=== PATIENT | female | born 1980 ===

== ENCOUNTER → 2020-02-16 08:19 | Outpatient (BNVA) | payer OTHER, SELFPAY | PROVIDERS: PCP Internal Medicine; Visit Provider Physician Assistant | DX: Z76.89 Persons encountering health services in other specified circumstances (principal) ==

== ENCOUNTER → 2020-02-17 07:59 | Outpatient (BNVA) | payer OTHER, SELFPAY | PROVIDERS: PCP Internal Medicine; Referring Provider Internal Medicine; Visit Provider Surgery | DX: E66.01 Morbid (severe) obesity due to excess calories (principal); K21.9 Gastro-esophageal reflux disease without esophagitis | CPT/HCPCS: Q3014 ==

== ENCOUNTER 2020-03-02 13:14 | Outpatient (REF) | payer OTHER, SELFPAY ==
[2020-03-03 15:53] LABS: H Pylori Breath Test NOT DETECTED (NOT DETECTED)
== END 2020-03-02 13:15 | disposition home or self-care (01) ==
LOC: HO.LNP 13:14
PROVIDERS: PCP Internal Medicine; Visit Provider Surgery
DX: Z11.0 Encounter for screening for intestinal infectious diseases (principal)
CPT/HCPCS: 83013; 99211

== ENCOUNTER 2020-03-05 06:40 | Outpatient (REF) | payer OTHER, SELFPAY ==
--- NOTE | 2020-03-05 07:18 | XR_ITS ---
EXAMINATION: XR CHEST CLINICAL INFORMATION: Gastroesophageal reflux disease with esophagitis. COMPARISON: None TECHNIQUE: 2 views of the chest were obtained. FINDINGS: No significant abnormality is noted involving the heart, lungs, mediastinum, bony thorax or soft tissues. XR/XR chest 2V IMPRESSION: Unremarkable chest examination.
[2020-03-05 07:20] LABS: MANUAL DIFF FLAG NO
[2020-03-05 07:22] LABS: Basophils Percent Auto 0.4 % (0-2); Eosinophils Absolute Auto 0.2 X10*3/uL (0.0-0.4); Eosinophils Percent Auto 2.9 % (0-4); Hematocrit 36.1 % (37-47); Imm Gran Abs Auto 0.03 X10*3/uL (0.00-0.03); Imm Gran Pct Auto 0.4 % (0.0-0.4); Lymphocytes Absolute Auto 2.2 X10*3/uL (1.2-4.9); Lymphocytes Percent Auto 28.5 % (20-40); Mean Corpuscular HGB Conc 33.2 g/dl (31.0-35.0); Mean Corpuscular Volume 78.3 fL (80-98); Mean Platelet Volume 9.7 fL (9.4-12.3); Monocytes Absolute Auto 0.5 X10*3/uL (0.1-1.2); Monocytes Percent Auto 6.7 % (2-11); Neutrophils Absolute Auto 4.8 X10*3/uL (2.0-8.3); Neutrophils Percent Auto 61.1 % (45-73); Platelet Count 334 X10*3/uL (160-400); Red Blood Count 4.61 X10*6/uL (4.20-5.50); Red Cell Distribution Width 14.1 % (11.0-16.0); White Blood Count 7.8 X10*3/uL (4.8-10.8)
[2020-03-05 07:31] LABS: Estimated Average Glucose 108 mg/dL; Hemoglobin A1c % 5.4 %
[2020-03-05 07:45] LABS: Alanine Aminotransferase 24 U/L (0-31); Albumin Level 4.2 g/dL (3.5-5.0); Alkaline Phosphatase 65 U/L (39-117); Anion Gap 13 (12-20); Aspartate Amino Transferase 22 U/L (5-31); Bilirubin Total 0.5 mg/dL (0.0-1.0); Blood Urea Nitrogen 11 mg/dL (9-16); C Reactive Protein 1.73 mg/dL (< or = 0.50); Calcium 8.8 mg/dL (8.4-10.2); Carbon Dioxide 26 mmol/L (22-29); Chloride 103 mmol/L (96-108); Cholesterol 186 mg/dL; Estimated Glomerular Filt Rate > 60; Glucose Random 113 mg/dL (60-115); HDL Cholesterol 61 mg/dL; LDL Cholesterol Calculated 110 mg/dl; Potassium 4.1 mmol/l (3.3-5.1); Sodium 138 mmol/L (135-145); Total Protein 7.6 g/dL (6.5-8.0); Triglycerides 76 mg/dL
[2020-03-05 07:58] LABS: Ferritin 24 ng/mL (10-122); TSH reflex Free T4 1.14 mIU/mL (0.32-4.0); Vitamin D 25-OH Total 26.8 ng/mL (>30)
[2020-03-05 09:38] LABS: Folate > 20.0 ng/mL (> or = 4.0); Vitamin B12 633 pg/mL (200-900)
[2020-03-06 13:43] LABS: Calcium (PTHI) 9.1 mg/dL (8.6-10.2); PTHI 48 pg/mL (14-64)
[2020-03-06 17:12] LABS: Insulin Level Total 17.7 uIU/mL
[2020-03-08 13:42] LABS: Zinc 66 mcg/dL (60-130)
[2020-03-10 10:22] LABS: Vitamin A 28 mcg/dL (38-98)
[2020-03-11 12:03] LABS: Vitamin B1 9 nmol/L (8-30)
== END 2020-03-05 06:41 | disposition home or self-care (01) ==
LOC: HO.LAB 06:40
PROVIDERS: PCP Internal Medicine; Visit Provider Surgery
DX: K21.9 Gastro-esophageal reflux disease without esophagitis (principal)
CPT/HCPCS: 36415; 71046; 80053; 80061; 82306; 82607; 82728; 82746; 83036; 83525; 83970; 84425; 84443; 84590; 84630; 85025; 86140

== ENCOUNTER → 2020-03-08 08:09 | Outpatient (BNVA) | payer OTHER, SELFPAY | PROVIDERS: PCP Internal Medicine; Visit Provider Dietitian, Registered | DX: Z76.89 Persons encountering health services in other specified circumstances (principal) ==

== ENCOUNTER → 2020-03-14 08:21 | Outpatient (REF) | payer OTHER, SELFPAY ==
--- NOTE | 2020-03-14 08:42 | ECG_ITS ---
Test Reason : CP Blood Pressure : / mmHG Vent. Rate : 060 BPM Atrial Rate : 060 BPM P-R Int : 152 ms QRS Dur : 084 ms QT Int : 410 ms P-R-T Axes : 072 041 008 degrees QTc Int : 410 ms Normal sinus rhythm Normal ECG No previous ECGs available Referred By: Keshawn Cordero Electronically Signed By:DES FLOYD
== END ==
LOC: HO.CARD 08:21
PROVIDERS: PCP Internal Medicine; Visit Provider Surgery
DX: R07.9 Chest pain, unspecified (principal)
CPT/HCPCS: 93005; Q3014

== ENCOUNTER 2020-03-19 09:34 | Outpatient (REF) | payer OTHER, SELFPAY ==
--- NOTE | 2020-03-19 09:38 | US_ITS ---
EXAMINATION: US ABDOMEN COMPLETE WITH ELASTOGRAPHY FL UPPER GI AIR CONTRAST STUDY CLINICAL INFORMATION: Gastroesophageal reflux disease. Excessive calories. Workup prior to gastric reduction surgery. COMPARISON: CT abdomen and pelvis 01/25/2019. TECHNIQUE: Routine grayscale imaging of abdominal ultrasound was performed. Routine double contrast upper GI exam was performed in upright and lying position. FINDINGS: ABDOMEN ULTRASOUND: Liver and Gallbladder: There is diffuse echogenic liver without any focal lesion or intrahepatic ductal dilatation. The right hepatic lobe measures 15.5 cm in length and left hepatic lobe measures 11.1 cm. There is normal hepatopedal flow seen in the portal vein. There are no echogenic gallstones or wall thickening. Gallbladder wall thickness is 0.2 cm. Elastography: The ElastPQ velocity measures 1.33 m/s corresponding to IQR/median 0.23. Spleen: The spleen measures 11.2 cm in length and is homogeneous echotexture. Pancreas: Unremarkable. Abdominal Aorta and IVC: Unremarkable. Right Kidney: The kidney measures 11.5 cm in length. There is normal cortical thickness. No echogenic stones, cyst or hydronephrosis seen. Left Kidney: The kidney measures 10.7 cm in length. There is normal cortical thickness. No echogenic stones, cysts or hydronephrosis seen. UPPER GI AIR-CONTRAST STUDY: Following oral administration of thick barium and effervescent granules in upright view, there is normal propagation of bolus from the oral cavity through the pharynx, esophagus into stomach without any evidence of obstruction, narrowing or stricture. On placing patient supine and prone lying, the course, caliber and peristalsis of the stomach, duodenal bulb and the sweep is normal. There are circular lesions in the antrum and pylorus of stomach, likely small gastric erosions. There is no ulceration seen There is moderate-size hiatal hernia with moderate gastroesophageal reflux seen during the exam in lying supine position. US/US abdomen comp w elastography IMPRESSION: Hepatic steatosis without focal lesion. Rest of the abdominal ultrasound is unremarkable. On elastography there is [id number] fibrosis, stage F0 - F1. Moderate size hiatal hernia with gastroesophageal reflux.
== END 2020-03-19 09:35 | disposition home or self-care (01) ==
LOC: HO.US 09:34
PROVIDERS: Visit Provider Surgery
DX: Z01.818 Encounter for other preprocedural examination (principal); E66.01 Morbid (severe) obesity due to excess calories; K21.9 Gastro-esophageal reflux disease without esophagitis
CPT/HCPCS: 74240; 76705; 76981

== ENCOUNTER 2020-03-26 09:18 | Emergency (ER) | payer OTHER, SELFPAY ==
--- NOTE | 2020-03-26 10:10 | ED.SKABFB ---
HPI - Skin/Abscess/Foreign Bdy General Chief complaint: Skin/Abscess/Foreign Body Stated complaint: rash Time Seen by Provider: 03/26/20 10:09 Source: patient Mode of arrival: ambulatory Limitations: no limitations History of Present Illness HPI narrative: 39 y/o female with history of obesity, fibromyalgia, asthma, depression, GERD who presents to the ED with acute onset of itchy rash on arms and legs. She states she woke up at midnight with a small area on her upper thigh, applied alcohol and went back to sleep. When she woke up this morning both of her arms had red itchy rash on them. She has a history of sensitive skin and uses hypoallergenic detergent. Denies use of lotions, new soaps, no perfumes. No new foods. No wheezing, SOB or facial swelling. MD complaint: rash Onset (ago): hour(s) (10) Tetanus up to date: unsure Location: LUE, RUE, LLE and RLE Severity: moderate Severity scale (1-10): 6 Quality: burning and pruritic Pain Consistency: constant Relieving factors: cold therapy and medication Exacerbating factors: palpation Context: none Associated symptoms: denies other symptoms Treatments prior to arrival: OTC topical medication Related Data Home Medications Medication Instructions Recorded Confirmed albuterol sulfate 90 mcg/actuation 2 puff INHALATION Q4H PRN 02/17/20 02/17/20 aerosol inhaler cetirizine 10 mg tablet 10 mg PO DAILY 02/17/20 02/17/20 fluoxetine 20 mg capsule 20 mg PO DAILY 02/17/20 02/17/20 ibuprofen 600 mg tablet 600 mg PO Q8H PRN 02/17/20 02/17/20 multivitamin 1 tab PO DAILY 02/17/20 02/17/20 Previous Rx's Medication Instructions Recorded cholecalciferol (vitamin D3) 125 125 mcg PO DAILY #30 cap 03/14/20 mcg (5,000 unit) capsule vitamin A palmitate 15,000 unit 15,000 unit PO .COMPLEX #30 tab 03/14/20 tablet hydrocortisone 1 appl TOPICAL TID PRN #20 g 03/26/20 prednisone 40 mg PO DAILY #10 tab 03/26/20 Allergies Allergy/AdvReac Type Severity Reaction Status Date / Time animal dander Allergy Severe Anaphylaxis Verified 02/17/20 12:30 ethinyl estradiol Allergy Severe Anaphylaxis Verified 02/17/20 12:30 [From [place] (91)] Review of Systems Review of Systems: Constitutional: No Fever, No Chills ENT/Mouth: No sore throat, No Rhinorrhea, No Swallowing Difficulty Eyes: No Eye Pain, No Swelling, No Redness Cardiovascular: No Chest Pain, No SOB Respiratory: No Cough, No Sputum, No Wheezing Gastrointestinal: No Nausea, No Vomiting, No Diarrhea, No abdominal Pain Musculoskeletal: No joint pain, No Myalgias Skin: No Skin Lesions, + rash Heme/Lymph: No Bruising, No Lymphadenopathy PMFSH Past Medical History Attestation statement: The following information was validated with the patient. Medical History Asthma Depression Fibromyalgia GERD (gastroesophageal reflux disease) Morbid obesity Vitamin D deficiency Surgical History Hx of carpal tunnel repair Hx of tubal ligation Family History Family History (Updated 02/17/20 @ 09:56 by Amari Mcelroy Silvano) Mother Cancer Hypertension Arthritis Father Hypertension Diabetes Skin cancer Diverticulitis Brother Hypertension Daughter ADHD Son No problems noted. Social History Social History (Updated 02/17/20 @ 09:56 by Amari Mcelroy Silvano) Alcohol intake: never Smoking Status: Never smoker Advance Directives: No Advance Directives Information Provided: Yes Physical Exam Vital Signs: Vital Signs: Last Vital Signs Temp 98.3 F 03/26/20 10:12 Pulse 78 03/26/20 10:12 Resp 16 03/26/20 10:12 BP 173/101 H 03/26/20 10:12 Pulse Ox 97 03/26/20 10:12 Body Mass Index 37.4 Appearance: Alert. Oriented X3. No acute distress. HEENT: normal inspection, no facial swelling, lip swelling. pharynx normal. CVS: Normal heart rate and rhythm. Pulses normal. Respiratory: No respiratory distress. Lyngs CTAB Skin: Skin warm and dry. Normal skin color. Normal skin turgor. Extremities: bilateral upper extremities with erythematous, maculopapular rash scattered on both the dorsal and volar aspect, mostly forearms with scattered lesions on upper arms. small areas on bilateral upper thighs. Neuro: Oriented X 3. Non-focal. Normal gait. Course Course Course Narrative: 39 y/o female presenting with acute onset of prurutic rash on all 4 extremities - etiology unclear. Will require steroids and PRN benadryl. No respiratory involvement. Patient counseled. Prednisone and topical hydrocortisone sent to [facility]. Advised trial of Benadryl. Stable for d/c. Critical Care Time Critical Care Time Critical Care Time: No Discharge Plan Discharge Clinical Impression: Contact dermatitis Qualifiers: Contact dermatitis type: unspecified Contact dermatitis trigger: unspecified trigger Qualified Code(s): L25.9 - Unspecified contact dermatitis, unspecified cause Patient Disposition: Home, Self-Care Instructions: Dermatitis (ED) Additional Instructions: Take the prescribed steroids for your rash. Use the prescribed cream for itching as needed. Do not use alcohol on the rash, this will dry it out and make it itch more. Take over the counter Benadryl 25-50 mg every 6 hours as needed for itching. If rash worsens or if you develop shortness of breath, wheezing or facial swelling come back to the ER for further evaluation. Follow up with your doctor as needed. Your blood pressure was elevated. This needs to be monitored. Prescriptions: New prednisone 20 mg tablet 40 mg PO DAILY Qty: 10 RF: 0 hydrocortisone 2.5 % cream 1 appl topical TID PRN (Reason: itching) Qty: 20 RF: 0 No Action multivitamin Tablet 1 tab PO DAILY RF: 0 fluoxetine 20 mg capsule 20 mg PO DAILY RF: 0 cetirizine 10 mg tablet 10 mg PO DAILY RF: 0 albuterol sulfate 90 mcg/actuation HFA aerosol inhaler 2 puff inhalation Q4H PRNRF: 0 ibuprofen 600 mg tablet 600 mg PO Q8H PRNRF: 0 cholecalciferol (vitamin D3) 125 mcg (5,000 unit) capsule 125 mcg PO DAILY Qty: 30 RF: 0 vitamin A palmitate 15,000 unit tablet 15,000 unit PO .COMPLEX Qty: 30 RF: 0 Discharge Date/Time: 03/26/20 10:25
[2020-03-26 10:12] VITALS: BP 173/101; PULSE 78; RESP 16; TEMP 36.8; O2SAT 97; BMI 37.4
== END 2020-03-26 10:25 | disposition home or self-care (01) ==
PROVIDERS: Emergency Provider Emergency Medicine; PCP Internal Medicine
DX: L25.9 Unspecified contact dermatitis, unspecified cause (principal)
CPT/HCPCS: 99283

== ENCOUNTER → 2020-04-09 08:04 | Outpatient (BNVA) | payer OTHER, SELFPAY | PROVIDERS: PCP Internal Medicine; Visit Provider Surgery | DX: E66.9 Obesity, unspecified (principal); Z68.37 Body mass index [BMI] 37.0-37.9, adult | CPT/HCPCS: Q3014 ==

== ENCOUNTER → 2020-04-10 08:09 | Outpatient (BNVA) | payer OTHER, SELFPAY | PROVIDERS: PCP Internal Medicine; Visit Provider Dietitian, Registered ==

== ENCOUNTER 2020-04-20 12:32 | Outpatient (REF) | payer OTHER, SELFPAY ==
--- NOTE | ~2020-04-20 | XR_ITS ---
EXAMINATION: XR KNEE, RIGHT CLINICAL INFORMATION: Pain. COMPARISON: None TECHNIQUE: Four views of the right knee. FINDINGS: There is mild loss of medial compartment joint space without bony erosive changes or loose bodies. No abnormal joint effusion seen. There is a small anterior superior patellar enthesophytes along the quadriceps tendon insertion. No visible acute fracture or dislocation. XR/XR knee RT 3V IMPRESSION: Mild loss of medial compartment joint space. Small spur along the anterior superior patella.
== END 2020-04-20 12:33 | disposition home or self-care (01) ==
LOC: HO.XRAY 12:32
PROVIDERS: PCP Internal Medicine; Visit Provider Internal Medicine
DX: M25.561 Pain in right knee (principal)
CPT/HCPCS: 73562

== ENCOUNTER → 2020-05-07 08:21 | Outpatient (BNVA) | payer OTHER, SELFPAY | PROVIDERS: PCP Internal Medicine; Visit Provider Surgery | DX: E66.9 Obesity, unspecified (principal); K21.9 Gastro-esophageal reflux disease without esophagitis | CPT/HCPCS: Q3014 ==

== ENCOUNTER → 2020-05-14 13:58 | Outpatient (BNVA) | payer OTHER, SELFPAY | PROVIDERS: PCP Internal Medicine; Visit Provider Physician Assistant ==

== ENCOUNTER 2020-05-17 08:16 | Inpatient (IN) | payer OTHER, SELFPAY ==
[2020-05-14 09:14] LABS: MANUAL DIFF FLAG NO
[2020-05-14 09:21] LABS: Basophils Percent Auto 0.5 % (0-2); Eosinophils Absolute Auto 0.2 X10*3/uL (0.0-0.4); Eosinophils Percent Auto 2.9 % (0-4); Hematocrit 39.2 % (37-47); Hemoglobin 13.2 g/dl (12.0-16.0); Imm Gran Abs Auto 0.02 X10*3/uL (0.00-0.03); Imm Gran Pct Auto 0.3 % (0.0-0.4); Lymphocytes Absolute Auto 2.1 X10*3/uL (1.2-4.9); Lymphocytes Percent Auto 27.4 % (20-40); Mean Corpuscular HGB Conc 33.7 g/dl (31.0-35.0); Mean Corpuscular Hemoglobin 26.6 pg (27.0-33.0); Mean Corpuscular Volume 78.9 fL (80-98); Mean Platelet Volume 10.5 fL (9.4-12.3); Monocytes Absolute Auto 0.5 X10*3/uL (0.1-1.2); Monocytes Percent Auto 6.4 % (2-11); Neutrophils Absolute Auto 4.7 X10*3/uL (2.0-8.3); Neutrophils Percent Auto 62.5 % (45-73); Platelet Count 339 X10*3/uL (160-400); Red Blood Count 4.97 X10*6/uL (4.20-5.50); Red Cell Distribution Width 14.2 % (11.0-16.0); White Blood Count 7.5 X10*3/uL (4.8-10.8)
[2020-05-14 09:23] LABS: INTERNATIONAL NORM RATIO 1.1 (0.9-1.1); Prothrombin Time 12.8 SEC (10.8-13.0)
[2020-05-14 09:26] LABS: Partial Thromboplastin Time 39.9 SEC (24.1-38.0)
[2020-05-14 09:51] LABS: Alanine Aminotransferase 13 U/L (0-31); Albumin Level 4.5 g/dL (3.5-5.0); Alkaline Phosphatase 59 U/L (39-117); Anion Gap 14 (12-20); Aspartate Amino Transferase 17 U/L (5-31); Bilirubin Total 0.6 mg/dL (0.0-1.0); Blood Urea Nitrogen 13 mg/dL (9-16); C Reactive Protein 0.74 mg/dL (< or = 0.50); Calcium 9.5 mg/dL (8.4-10.2); Carbon Dioxide 27 mmol/L (22-29); Chloride 103 mmol/L (96-108); Cholesterol 192 mg/dL; Estimated Glomerular Filt Rate > 60; Glucose Random 98 mg/dL (60-115); HDL Cholesterol 60 mg/dL; LDL Cholesterol Calculated 115 mg/dl; Potassium 4.5 mmol/L (3.3-5.1); Sodium 139 mmol/L (135-145); Total Protein 8.1 g/dL (6.5-8.0); Triglycerides 86 mg/dL
[2020-05-14 10:05] LABS: Estimated Average Glucose 97 mg/dL
[2020-05-14 11:30] VITALS: BP 131/76; PULSE 66; RESP 16; O2SAT 97; BMI 34.4
--- NOTE | 2020-05-14 11:45 | P.CONAN_ITS ---
Documented by User: Suzan Courtney 05/14/20 12:24 HPI - Anesthesia Eval Consult details Narrative: 39yo F for Gastrectomy Sleeve PMFSH Active Problems Active Problems: All Active Problems (Updated 05/07/20 @ 10:20 by Keshawn Cordero MD) Nausea (Acute) BMI over 35 (Acute) BMI 37.0-37.9, adult (Acute) Vitamin D deficiency (Acute) BMI 38.0-38.9,adult (Acute) Obesity (Acute) GERD (gastroesophageal reflux disease) (Acute) Fibromyalgia (Acute) Asthma (Acute) Depression (Acute) Morbid obesity (Acute) Past Medical History Medical History Anxiety and depression Asthma Depression Fibromyalgia GERD (gastroesophageal reflux disease) Hiatal hernia Hx of allergic rhinitis Hx of chest pain Low back pain Morbid obesity PONV (postoperative nausea and vomiting) Sciatica of left side Seasonal allergies Vitamin D deficiency Family History Family History Mother Cancer Hypertension Arthritis Father Hypertension Diabetes Skin cancer Diverticulitis Brother Hypertension Daughter ADHD Son No problems noted. 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 If so, by whom?: No Spiritual Healthcare Practices: none Voodoo Healthcare Practices: none Cultural Healthcare Practices: none Advance Directives: No Advance Directives Information Provided: No Advance Directives on File: No Recently lost weight without trying: No Narrative Narrative: NO recent illness. >4 mets with exercise. Meds Allergies Allergy/AdvReac Type Severity Reaction Status Date / Time animal dander Allergy Severe Anaphylaxis Verified 05/14/20 12:34 Home Medications Medication Instructions Recorded Confirmed Last Taken Type albuterol sulfate 90 mcg/actuation 2 puff INHALATION Q4H PRN 02/17/20 02/17/20 Unknown History aerosol inhaler cetirizine 10 mg tablet 10 mg PO DAILY PRN 02/17/20 02/17/20 Unknown History fluoxetine 20 mg capsule 20 mg PO DAILY 02/17/20 02/17/20 Unknown History multivitamin 1 tab PO DAILY 02/17/20 05/14/20 Unknown History Exam Exam Date and Time: May 14, 2020 1145 Pertinent Lab Results Pertinent Lab Results: Laboratory Tests 05/14/20 05/14/20 05/14/20 08:35 08:35 08:35 WBC 7.5 RBC 4.97 Hgb 13.2 Hct 39.2 MCV 78.9 L MCH 26.6 L MCHC 33.7 RDW 14.2 Plt Count 339 MPV 10.5 Immature Gran % (Auto) 0.3 Neut % (Auto) 62.5 Lymph % (Auto) 27.4 [place] % (Auto) 6.4 Eos % (Auto) 2.9 Baso % (Auto) 0.5 Lymph # (Auto) 2.1 [place] # (Auto) 0.5 Eos # (Auto) 0.2 Baso # (Auto) 0.0 Abs Immat Gran (auto) 0.02 Absolute Neuts (auto) 4.7 Absolute Nucleated RBC 0.000 Nucleated RBC % (auto) 0.0 PT 12.8 INR 1.1 APTT 39.9 H Sodium 139 Potassium 4.5 Chloride 103 Carbon Dioxide 27 Anion Gap 14 BUN 13 Creatinine 0.79 Estim Creat Clear Calc TNP Estimated GFR > 60 Random Glucose 98 Estimat Average Glucose Hemoglobin A1c % Calcium 9.5 D Total Bilirubin 0.6 AST 17 ALT 13 Alkaline Phosphatase 59 C-Reactive Protein 0.74 H Total Protein 8.1 H Albumin 4.5 Triglycerides 86 Cholesterol 192 LDL Cholesterol, Calc 115 HDL Cholesterol 60 TSH 1.20 05/14/20 08:35 WBC RBC Hgb Hct MCV MCH MCHC RDW Plt Count MPV Immature Gran % (Auto) Neut % (Auto) Lymph % (Auto) [place] % (Auto) Eos % (Auto) Baso % (Auto) Lymph # (Auto) [place] # (Auto) Eos # (Auto) Baso # (Auto) Abs Immat Gran (auto) Absolute Neuts (auto) Absolute Nucleated RBC Nucleated RBC % (auto) PT INR APTT Sodium Potassium Chloride Carbon Dioxide Anion Gap BUN Creatinine Estim Creat Clear Calc Estimated GFR Random Glucose Estimat Average Glucose 97 Hemoglobin A1c % 5.0 Calcium Total Bilirubin AST ALT Alkaline Phosphatase C-Reactive Protein Total Protein Albumin Triglycerides Cholesterol LDL Cholesterol, Calc HDL Cholesterol TSH Narrative Narrative: EKG 02/2021 Normal sinus rhythm Normal ECG No previous ECGs available Airway Mallampati Class: I TM Dist: >3cm Neck ROM: Full Loose/Missing/Broken Teeth: No Heart: RRR Lungs: CTAB Assessment and Plan Assessment Anesthesia Assessment: Anesthesia Plan Discussed and PAT Visit Documented by User: Barry Dhillon 05/17/20 09:03 PMFSH Past Medical History Medical History Anxiety and depression Asthma Depression Fibromyalgia GERD (gastroesophageal reflux disease) Hiatal hernia Hx of allergic rhinitis Hx of chest pain Low back pain Morbid obesity PONV (postoperative nausea and vomiting) Sciatica of left side Seasonal allergies Vitamin D deficiency Family History Family History Mother Cancer Hypertension Arthritis Father Hypertension Diabetes Skin cancer Diverticulitis Brother Hypertension Daughter ADHD Son No problems noted. 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 If so, by whom?: No Spiritual Healthcare Practices: none Voodoo Healthcare Practices: none Cultural Healthcare Practices: none Advance Directives: No Advance Directives Information Provided: No Advance Directives on File: No Recently lost weight without trying: No Meds Allergies Allergy/AdvReac Type Severity Reaction Status Date / Time animal dander Allergy Severe Anaphylaxis Verified 05/14/20 12:34 Home Medications Medication Instructions Recorded Confirmed Last Taken Type albuterol sulfate 90 mcg/actuation 2 puff INHALATION Q4H PRN 02/17/20 02/17/20 Unknown History aerosol inhaler cetirizine 10 mg tablet 10 mg PO DAILY PRN 02/17/20 02/17/20 Unknown History fluoxetine 20 mg capsule 20 mg PO DAILY 02/17/20 02/17/20 Unknown History multivitamin 1 tab PO DAILY 02/17/20 05/14/20 Unknown History Exam Airway Mallampati Class: II TM Dist: >3cm Neck ROM: Full Loose/Missing/Broken Teeth: No Heart: RRR+[id number] Lungs: CTA B/L Assessment and Plan Assessment Anesthesia Assessment: Anesthesia Plan Discussed, PAT Visit and Chart Reviewed Final Anesthetic Review NPO: Yes ASA Class: II Final Preanesthetic Review: No Changes in Pt Med Stat, Meds/Allgs Chart Reviewed, Consent Obtained/Reviewed and Anes Risks/Benef Reviewed Patient Risk: Low Procedure Risk: Low Assessment/Block/Sedation in SS: Assess/Block/Sedation-SS Anesthetic Plan Anesthetic Plan: GA and Agree w/ Assess. and Plan Disposition: Standard PACU
[2020-05-16 02:16] LABS: Insulin Level Total 8.9 uIU/mL
--- NOTE | 2020-05-16 19:27 | MHC.SHP ---
Pre-Procedural Eval Section A The patient is an INPATIENT: Yes The History & Physical has been completed within 30 days and I have reviewed it.: No Section B Chief Complaint: obesity Details of Present Illness: obesity Relevant Family History (Specify if Yes): No Relevant Social History: None Present Medications: see Short Stay Collaborative assessment Medical History: No relevant PMH History of Previous Operations: No relevant previous surgery Allergies: Allergies Allergy/AdvReac Type Severity Reaction Status Date / Time animal dander Allergy Severe Anaphylaxis Verified 05/14/20 12:34 Review of Systems Sugical H&P ROS: Negative: Constitution, Cardiovascular, Respiratory, Neurological, Psychiatric, Hem-Onc, Allergic/Immunologic, Gastrointestinal, Genitourinary, Musculoskeletal, Integumentary, Endocrine and Eyes/Ears/Nose/Throat Exam Surgical H&P Exam: Normal: HEENT, Normal: Heart, Normal: Lungs, Normal: Extremities, Normal: Abdomen, Normal: Skin and Normal: Neurological Plan Diagnosis/Plan: Unchanged I have reviewed the history and physical and performed a pertinent physical examination on my patient. No changes have occurred unless specified.
[2020-05-17] VITALS (12 sets, daily range): BP systolic 109–141; BP diastolic 53–78; PULSE 58–83; RESP 14–18; TEMP 35.7–37.3; O2SAT 97–100
[2020-05-17] MEDS: Scopolamine 1.5 MG PATCH.TD.3 TRANSDERMA (08:50)
[2020-05-17] MEDS: Lactated Ringers 1,000 ML 100 ML IVCONT (08:51)
[2020-05-17 08:54] LABS: COVID-19 Test Negative (Negative); IDNOW Serial# 9DD0AD1C
[2020-05-17] MEDS: Lactated Ringers 1,000 ML 50 ML IV (09:16)
--- NOTE | 2020-05-17 12:50 | P.DS_ITS ---
DS: Providers Provider Date of Service: 05/18/20 Date of admission: 05/17/20 08:16 Primary care physician: Mary Anne Hung MD DS: Medications Discharge Medications Home Medications: Home Medications Medication Instructions Recorded Confirmed albuterol sulfate 90 mcg/actuation 2 puff INHALATION Q4H PRN 02/17/20 02/17/20 aerosol inhaler cetirizine 10 mg tablet 10 mg PO DAILY PRN 02/17/20 02/17/20 fluoxetine 20 mg capsule 20 mg PO DAILY 02/17/20 02/17/20 multivitamin 1 tab PO DAILY 02/17/20 05/14/20 Previous Rx's Medication Instructions Recorded vitamin A palmitate 15,000 unit 15,000 unit PO .COMPLEX #30 tab 03/14/20 tablet hydrocortisone 1 appl TOPICAL TID PRN #20 g 03/26/20 ondansetron HCl 4 mg tablet 4 mg PO DAILY #14 tab 05/07/20 pantoprazole 40 mg tablet,delayed 40 mg PO DAILY #30 tab 05/07/20 release polyethylene glycol 3350 17 gram 17 g PO DAILY #14 ea 05/07/20 oral powder packet sucralfate 100 mg/mL oral 10 ml PO BID #420 ml 05/07/20 suspension DS: Summary Time Spent with Patient Time attestation: ADMITTING DIAGNOSIS: morbid obesity, hiatal hernia, fibromyalgia, asthma, depression DISCHARGE DIAGNOSIS: same, s/p laparoscopic sleeve gastrectomy and hiatal hernia repair PAST SURGICAL HISTORY: BTL, carpal tunnel PROCEDURE: upper endoscopy, laparoscopic sleeve gastrectomy DISCHARGE SUMMARY: History of Present Illness: The patient is a 39 year-old woman with a BMI of kg/m2 and associated co- morbidities as described above. The patient had extensive work-up,lost 23.6 lbs preoperatively and was electively scheduled for laparoscopic, possible open sleeve gastrectomy and gastropexy. Risks and complications of the surgery were discussed with the patient in advance, particularly the possibility of , pu lmonary embolism, anastomotic leak, bleeding, bowel injury, GERD, cardiac, renal or pulmonary complications. The patient understood all the risks and was in agreement with the surgical plan. Hospital Course: The patient underwent an uneventful laparoscopic sleeve gastrectomy with gastropexy and repair of hiatal hernia on the day of admission. Postoperatively, the patient was transferred to the surgical floor. The patient was on IV Acetaminophen and IV dilaudid for pain control. Patient was started on bariatric phase 1 diet POD #0. On postoperative day one, the patient was feeling well without nausea, vomiting, fevers, or tachycardia. The patient had some mild incisional pain. The abdomen was soft. On the morning of postoperative day one, the patient was continued on 1 ounce of water or ice every half hour. During the first day, the patient did fairly well, having some incisional pain, but able to ambulate adequately and to tolerate liquids well. Since the patient is doing well, we decided that the patient was ready to be discharged. The patient was given instructions to follow-up with me next week and to call my office for any fever over 101, persistent abdominal pain, nausea, vomiting, GERD, symptoms of DVT such as calf tenderness, or leg swelling, or pulmonary embolism such as chest pain or shortness of breath. The patient was also instructed to drink 40-60 ounces of liquids per day using the 1-ounce cups. The patient was given prescription for Tylenol for pain, Zofran prn for nausea, and pantoprazole and carafate. The patient was encouraged to ambulate and use the incentive spirometer. The patient was allowed to shower, but no baths, and encouraged to stay active at home. All of these instructions were given to the patient personally. All questions were answered and the patient understood all instructions, the instructions were also given to the patient in print. Total time spent providing and/or coordinating discharge services: Discharge coordination time: Less than 30 minutes Physical Exam Vital Signs: Vital Signs: Last Vital Signs Temp 99.2 F 05/17/20 08:33 Pulse 83 05/17/20 08:33 Resp 18 05/17/20 08:33 BP 138/53 L 05/17/20 08:33 Pulse Ox 99 05/17/20 08:33 Body Mass Index 34.4 DS: Data Data Completed and Pending Pending studies at discharge: Pending at discharge 05/17/20 12:01 Surgical [PTH] Routine Labs on day of discharge: Laboratory Results - last 24 hr 05/17/20 08:20 COVID-19 ([facility]) Negative COVID-19 Clin Com See Note Discharge Plan Discharge Anticipated Discharge Date/Time: 05/18/20 11:48 Patient Disposition: Home, Self-Care Referrals: Mary Anne Hung MD [Primary Care Provider] - Discharge Medications: Continued hydrocortisone 2.5 % cream 1 appl topical TID PRN (Reason: itching) Qty: 20 RF: 0 fluoxetine 20 mg capsule 20 mg PO DAILY RF: 0 cetirizine 10 mg tablet 10 mg PO DAILY PRN (Reason: Allergic Reaction) RF: 0 albuterol sulfate 90 mcg/actuation HFA aerosol inhaler 2 puff inhalation Q4H PRN (Reason: Shortness Of Breath) RF: 0 pantoprazole 40 mg tablet,delayed release (DR/EC) 40 mg PO DAILY Qty: 30 RF: 2 sucralfate 100 mg/mL suspension 10 ml PO BID Qty: 420 RF: 2 ondansetron HCl [Zofran] 4 mg tablet 4 mg PO DAILY Qty: 14 RF: 0 Discontinued multivitamin Tablet 1 tab PO DAILY RF: 0 vitamin A palmitate 15,000 unit tablet 15,000 unit PO .COMPLEX Qty: 30 RF: 0 polyethylene glycol 3350 [Miralax] 17 gram powder in packet 17 g PO DAILY Qty: 14 RF: 0 Discharge Orders: Discharge Order (Routine); Ordered 05/18/20 Ordered By: Keshawn Cordero Diet: other Activity on Discharge: No heavy lifting Stand Alone Forms: Patient Portal Discharge page Activity Restrictions/Additional Instructions: No tub baths, sex or returning to work until discussed at first post op appointment. No exercise, alcohol, tobacco or illegal drug use. Continue to use incentive spirometer hourly while awake. Walk in home for 5- 10 minutes every 2 hours during the first week. Continue phase 1 diet today and start phase 2 diet tomorrow morning. Follow all instructions in the bariatric handbook and call with any questions. Care Plan Goals: weight loss Health Concerns: morbid obesity Plan of Treatment: see discharge instructions
[2020-05-17] MEDS: Famotidine/PF 20 MG/2 ML VIAL IVPUSH ×2 (13:18→20:59)
[2020-05-17 13:30] LABS: Hematocrit 35.6 % (37-47)
[2020-05-17 13:56] LABS: Anion Gap 19 (12-20); Blood Urea Nitrogen 10 mg/dL (9-16); Calcium 8.1 mg/dL (8.4-10.2); Carbon Dioxide 18 mmol/L (22-29); Chloride 105 mmol/L (96-108); Creatinine Clr Calc Pharmacy 100.4; Estimated Glomerular Filt Rate > 60; Glucose Random 105 mg/dL (60-115); Sodium 138 mmol/L (135-145)
[2020-05-17] MEDS: Lactated Ringers 1,000 ML 125 ML IVCONT ×2 (14:53→21:59)
--- NOTE | 2020-05-17 14:59 | PM.OP ---
Brief Operative Note Date of Service: 05/17/20 Pre-op diagnosis: Obesity and comorbidities (see below) Post-op diagnosis: same (& moderate to large hiatal hernia) Procedure: INITIAL PATIENT BMI ON PRESENTATION AT OUR OFFICE: 40.3 kg/m2 LAST BMI BEFORE SURGERY: 35.1 kg/m2 COMORBIDITIES: GERD, asthma, depression, diaphragmatic hernia, liver steatosis, liver fibrosis The patient participated in an intensive weekly lifestyle intervention and exercise program during which the patient has lost between the initial office visit and the last preoperative visit 23.6lbs, or 11.26% of initial actual body weight. The patient met the BMI-criteria for bariatric surgery based on the BMI on initial presentation. The patient should not be penalized for achieving such weight loss because it is not sustainable long-term without surgical intervention and it was achieved in preparation for bariatric surgery under my direction and based on my published research ([email or web address] and [email or web address]) that a 10% preoperative weight loss improves long-term weight loss after surgery and reduces perioperative complications. Insurance carriers such as [facility] have endorsed my recommendations and have included in their policies criteria to include a 10% preoperative weight loss requirement. PROCEDURE: Esophago-gastroscopy, laparoscopic repair of incarcerated diaphragmatic hernia, laparoscopic lysis of adhesions, laparoscopic sleeve gastrectomy and laparoscopic gastropexy INDICATIONS: This is a 39 year-old female who was electively scheduled for laparoscopic, possibly open sleeve gastrectomy. The risks and complications of the procedure were discussed with the patient in advance, particularly the possibility of ; pulmonary embolism; staple line leak; bleeding; GERD; cardiac, pulmonary, or renal complications; as well as long-term problems such as insufficient weight loss, vitamin deficiency, strictures, or ulcers. The patient understood all the risks, and was in agreement to proceed with surgery. DESCRIPTION OF PROCEDURE: After informed consent was obtained from the patient, the patient was given preoperative antibiotics, and was transferred to the operating room. After successful induction of general anesthesia, pneumatic compressive devices were placed on both lower extremities. An upper endoscopy was performed next. The oropharynx and esophagus appeared to be within normal limits. There was a diaphragmatic hernia present of moderate size consistent with the findings of the preoperative upper GI. The stomach was entered. Then after all fluid and air were suctioned and the stomach was fully decompressed, the scope was withdrawn and secured in the mid esophagus. The patient was then prepped and draped in the usual sterile manner, and abdominal access was established at the right upper quadrant with the Manuel technique. A 12 mm blunt port was inserted, and the abdomen was insufflated with CO2 to a pressure of 15 mmHg. Under direct visualization, additional ports were placed, specifically two 5 mm Versi-step ports to the left upper quadrant, and a 5 mm Versi-Step port to the right upper quadrant. 1% lidocaine plan was used to infiltrate all port sites as well as all fascia defects. Using the EndoClose suture passer device, we placed a #1 Polysorb tie across the falciform ligament in order to retract it up against the abdominal wall and prevent injury of the ligament with our instruments during the procedure. Following that, the patient was placed in a steep reverse Trendelenburg position. An additional 5 mm port was placed to the right flank for the Mediflex retractor that was used to retract the left lobe of the liver. The gastro-esophageal fat pad was opened with the ultrasonic device (Thunderbeat, Olympus) and the anterior esophagus and hiatus were exposed. The angle of His was opened with the ultrasonic device the fundus of the stomach from any diaphragmatic and splenic attachments. I then opened the gastrocolic ligament between the transverse colon and the greater curvature of the stomach with the ultrasonic device to enter the lesser sac and facilitate the ligation of the short gastric vessels. I started at a mid-point along the greater curvature and using the Thunderbeat, all short gastric vessels were divided all the way to the angle of His until the left margarita was completely dissected at its entirety. I then divided the gastro-colic ligament distally to a distance of about 3-4 cm proximal to the esophagus. There was an obvious significant-sized hiatal hernia. I continued dissecting along the hiatus toward the left margarita and the angle of His. I fully mobilized the fat pad that was incarcerated in the hernia. I then continued by dissecting even further into the posterior retro-esophageal space all the way to the angle of His. I continued to mobilize the esophagus into the mediastinum circumferentially. THe right margarita was completely mobilized as well. This was challenging because the patient had a replaced left hepatic artery which was preserved. Both vagal nerves were seen and preserved. At that point, I was able to have at least 3 to 5 cm of esophagus into the abdomen. After I completely mobilized the esophagus from both the left and right margarita and I had a good mobilization of the esophagus circumferentially, I closed the hernia defect with four interrupted #0 Surgidac sutures using the Endo Stitch device, two of which were placed posterior and two anterior to the esophagus. The stomach was then divided transversely with one Endo NORMAN-45 and four NORMAN-60 articulating purple loads using the Happy Inspector stapler and loads. Every effort was made that the gastric sleeve had a tubular shape and an even caliber throughout. Once the sleeve resection was completed, the staple line of the gastric sleeve was reinforced with Hemoclips. The resected stomach was retrieved without difficulty from the Manuel port. A gastropexy was then performed in order to prevent postoperative GERD and partial gastric volvulus. Several interrupted 2.0 Surgidac sutures were placed between the sleeve's staple line and the previously divided greater omentum and gastro-colic ligament using the Endo-Stitch device. An upper endoscopy was performed. There was no narrowing at the GE junction. The scope was easily advanced all the way to the pylorus which was clearly visualized. There was no narrowing anywhere and the sleeve's caliber was even throughout. The sleeve's staple line was inspected and there was no evidence of ischemia, bleeding or dehiscence. At that point the gastroscope was withdrawn from the patient?s mouth while we were decompressing the bowel and the stomach from any remaining air. I looked into the lesser sac to see how the sleeve was situating and it was situating well. There was no bleeding from the staple line, spleen, or short gastric vessels. The Mediflex retractor was removed, and the undersurface of the liver was inspected and there was no bleeding. The patient was placed in supine position. I closed the fascial defect of the 12 mm port site with a figure of eight #1 Polysorb suture. Then 100 cc 0.25 % Marcaine plain with 10 mg of Dexamethasone were used to infiltrate the fascial closure as well as all skin incisions. At this point, the abdomen was deflated, all ports were removed under direct vision, and no bleeding was noted from any of the port sites. The skin incisions were irrigated with saline and were closed with 4-0 absorbable monofilament sutures. Steri-Strips and OpSites were used to cover all incisions. The patient was extubated and was transferred in stable condition to the recovery room for further care. I was present and performed all giraldo parts of the procedure. Ms. Grossson was the patient care nursing assistant. There were no residents to assist with this case. Sunil Cordero MD, PhD, FACS Surgeon: Keshawn Cordero MD Anesthesia: GETA, local and other (TAP block) Software Sales Consultant: Olivia Woods Estimated blood loss (mL): 10 IV fluids (mL): 2,500 Urine output (mL): 0 (No Dash to record) Pathology: other (Stomach) Condition: stable Disposition: PACU
--- NOTE | 2020-05-17 15:05 | PM.PNGS ---
Subjective Subjective Date of Service: 05/18/20 Interval history: Patient had mild incisional pain but she was able to ambulate and use the incentive spirometer. Physical Exam Vital Signs: Vital Signs: Last Vital Signs Temp 97.1 F 05/17/20 14:42 Pulse 67 05/17/20 14:42 Resp 15 05/17/20 14:42 BP 141/75 H 05/17/20 14:42 Pulse Ox 98 05/17/20 14:42 Body Mass Index 34.4 GI: Inspection: Yes normal to inspection, Yes incision (dry, clean and intact) and Yes obesity Extrem: Right lower extremity: normal to inspection (no calf tenderness) Left lower extremity: normal to inspection (no calf tenderness) Progress Note: A&P Assessment and plan (1) Obesity: Status: Acute (2) BMI over 35: Status: Acute (3) GERD (gastroesophageal reflux disease): Status: Acute (4) Asthma: Problem details: PRN inhaler, has not needed in 1 year Status: Acute (5) Depression: Status: Acute (6) Low back pain: Status: Acute (7) Hiatal hernia: Status: Acute (8) Liver fibrosis: Status: Acute (9) S/P laparoscopic sleeve gastrectomy: Status: Acute Assessment and Plan: 39 year old Female was admitted 05/17/20 with morbid obesity and comorbidities. Problem 1: s/p laparoscopic sleeve gastrectomy, repair of incarcerated diaphragmatic hernia, gastropexy and lysis of adhesions Status: Doing well Plan: Check am labs, If OK, will begin phase 1 bariatric diet. (10) S/P repair of paraesophageal hernia: Status: Acute Fall Risk Details Current Medications: Current Medications Generic Name Dose Route Start Last Admin Trade Name Freq PRN Reason Stop Dose Admin Famotidine 20 mg 05/17/20 14:33 05/17/20 14:52 Famotidine/Pf 20 Mg/2 Ml Vial IVPUSH Not Given BID JOSE G Hydromorphone HCl 0.25 mg 05/17/20 14:33 Hydromorphone Hcl 0.5 Mg/0.5 Ml Syringe IVPUSH Q4H PRN Pain, Moderate (Pain Scale 4-6 Cefazolin Sodium/Dextrose 2 gm in 50 mls @ 100 mls/hr 05/17/20 16:50 Ancef IV POSTOP@1650 JOSE G Acetaminophen 1,000 mg in 100 mls @ 16.7 mls/hr 05/17/20 14:33 05/17/20 14:52 Ofirmev IV 05/20/20 14:24 Not Given .Q6H JOSE G Lactated Ringer's 1,000 mls @ 125 mls/hr 05/17/20 14:33 05/17/20 14:53 Lr IVCONT 125 mls/hr .Q8H JOSE G Administration Metoclopramide HCl 10 mg 05/17/20 14:33 Metoclopramide Hcl 10 Mg/2 Ml Vial IVPUSH Q6H PRN Nausea Ondansetron HCl 4 mg 05/17/20 14:33 05/17/20 14:53 Ondansetron Hcl 4 Mg/2 Ml Vial IVPUSH Not Given Q8H JOSE G Sodium Chloride 3 ml 05/17/20 16:00 05/17/20 14:53 0.9 % Sodium Chloride Flush 3 Ml Syringe IVFLUSH Not Given QSHIFT JOSE G Time Spent With Patient Time: Total time spent is greater than 50% in coordination of care (as documented) at patient's floor/unit and/or counseling patient: Time with patient: less than 15 minutes Procedures Date of Service Date of Service: 05/18/20
[2020-05-17] MEDS: ceFAZolin Sodium/Dextrose,Iso 2 GM/50 ML PIGGYBACK IV (16:31)
[2020-05-17] MEDS: 0.9 % Sodium Chloride Flush 3 ML SYRINGE IVFLUSH (21:02)
[2020-05-17] MEDS: ondansetron HCL 4 MG/2 ML VIAL IVPUSH (21:59)
[2020-05-18 04:09] VITALS: BP 117/68; PULSE 54; RESP 16; TEMP 36.1; O2SAT 98
[2020-05-18 05:15] LABS: MANUAL DIFF FLAG NO
[2020-05-18 05:18] LABS: Basophils Percent Auto 0.1 % (0-2); Hematocrit 35.3 % (37-47); Hemoglobin 11.9 g/dl (12.0-16.0); Imm Gran Abs Auto 0.03 X10*3/uL (0.00-0.03); Imm Gran Pct Auto 0.3 % (0.0-0.4); Lymphocytes Percent Auto 10.4 % (20-40); Mean Corpuscular HGB Conc 33.7 g/dl (31.0-35.0); Mean Corpuscular Hemoglobin 26.6 pg (27.0-33.0); Mean Corpuscular Volume 78.8 fL (80-98); Mean Platelet Volume 10.6 fL (9.4-12.3); Monocytes Absolute Auto 0.6 X10*3/uL (0.1-1.2); Monocytes Percent Auto 6.3 % (2-11); Neutrophils Percent Auto 82.9 % (45-73); Platelet Count 302 X10*3/uL (160-400); Red Blood Count 4.48 X10*6/uL (4.20-5.50); Red Cell Distribution Width 14.1 % (11.0-16.0); White Blood Count 9.7 X10*3/uL (4.8-10.8)
[2020-05-18] MEDS: Lactated Ringers 1,000 ML 125 ML IVCONT (06:02)
[2020-05-18] MEDS: ondansetron HCL 4 MG/2 ML VIAL IVPUSH (06:03)
[2020-05-18 06:10] LABS: Anion Gap 15 (12-20); Blood Urea Nitrogen 7 mg/dL (9-16); Calcium 8.6 mg/dL (8.4-10.2); Carbon Dioxide 20 mmol/L (22-29); Chloride 106 mmol/L (96-108); Creatinine Clr Calc Pharmacy 101.7; Estimated Glomerular Filt Rate > 60; Glucose Random 108 mg/dL (60-115); Potassium 4.6 mmol/L (3.3-5.1); Sodium 136 mmol/L (135-145)
[2020-05-18 07:27] VITALS: BP 122/69; PULSE 68; RESP 15; TEMP 36.3; O2SAT 99
[2020-05-18] MEDS: 0.9 % Sodium Chloride Flush 3 ML SYRINGE IVFLUSH (07:28)
[2020-05-18] MEDS: Famotidine/PF 20 MG/2 ML VIAL IVPUSH (09:15)
--- NOTE | 2020-05-18 09:16 | MHC.CM.PN ---
PATIENT LIVES WITH FAMILY. 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 SHE IS RETURNING HOME TODAY WITH NO NEED FOR SERVICES. IMM 3/ IN CHART. PATIENT'S MOTHER WILL PROVIDE TRANSPORT HOME. RN AWARE OF PLAN.
--- NOTE | 2020-05-21 10:15 | HO.POSTANES ---
Post Anesthesia Evaluation Post Anesthesia Evaluation Vital Signs: Patient was seen 05/18/20 7am on paper. Vitals were stable Anesthesia: General Endotracheal-GETA Mental Status: Awake Pain Control: Satisfactory Nausea/Vomiting: None Hydration: Adequate Anesthesia-Related Issues: No Anes. Related Issues
== END 2020-05-18 10:33 | disposition home or self-care (01) | DRG 620 ==
LOC: HO.SSSA 12:50 → HO.S3 12:54
PROVIDERS: Physician Assistant; Admitting Provider Surgery; PCP Internal Medicine; Visit Provider Surgery
PROC: 0DB64Z3 Excision of Stomach, Percutaneous Endoscopic Approach, Vertical (ICD-10-PCS; CPT 43845; principal; 2020-05-17 10:10)
DX: E66.01 Morbid (severe) obesity due to excess calories (principal); K44.0 Diaphragmatic hernia with obstruction, without gangrene; Z68.35 Body mass index [BMI] 35.0-35.9, adult; K21.9 Gastro-esophageal reflux disease without esophagitis; F32.9 Major depressive disorder, single episode, unspecified; K76.0 Fatty (change of) liver, not elsewhere classified; J45.909 Unspecified asthma, uncomplicated; K66.0 Peritoneal adhesions (postprocedural) (postinfection); Z20.822 Contact with and (suspected) exposure to COVID-19; Z79.899 Other long term (current) drug therapy
CPT/HCPCS: 36415; 80048; 80053; 80061; 83036; 83525; 84443; 85014; 85018; 85025; 85610; 85730; 86140; 86850; 86900; 87635; 88307; 88342; 99024; A4649; J0131; J0690; J1100; J1170; J2250; J2370; J2405; J3010

== ENCOUNTER → 2020-05-25 07:21 | Outpatient (BNVA) | payer OTHER, SELFPAY | PROVIDERS: PCP Internal Medicine; Visit Provider Surgery | DX: E66.9 Obesity, unspecified (principal); Z68.33 Body mass index [BMI] 33.0-33.9, adult; Z71.3 Dietary counseling and surveillance | CPT/HCPCS: 99212 ==

== ENCOUNTER → 2020-06-25 08:12 | Outpatient (BNVA) | payer OTHER, SELFPAY | PROVIDERS: PCP Internal Medicine; Visit Provider Surgery | DX: E66.9 Obesity, unspecified (principal); Z68.31 Body mass index [BMI] 31.0-31.9, adult | CPT/HCPCS: 99212 ==

== ENCOUNTER 2020-07-19 17:08 | Emergency (ER) | payer OTHER, SELFPAY ==
--- NOTE | ~2020-07-19 | CT_ITS ---
EXAMINATION: CT ABDOMEN AND PELVIS WITHOUT CONTRAST CLINICAL INFORMATION: 39-year-old female with abdominal pain. Nausea and vomiting. COMPARISON: Abdominal ultrasound 03/19/[address] abdomen pelvis 01/25/2019 TECHNIQUE: Multidetector volumetric imaging was performed from the superior aspect of the liver through the pubic symphysis. Sagittal and coronal reformatted images were obtained on the technologist's workstation. This CT examination was performed using dose optimization techniques as appropriate, variously including the following: *Automated exposure control *Adjustment of mA and/or kV according to patient size (this includes techniques or standardized protocols for targeted exams where dose is matched to indication/reason for exam; i.e. extremities or head) *Use of iterative reconstruction technique DLP: 552 mGy-cm FINDINGS: Visualized lung bases are well aerated. The liver demonstrates normal size, contour and attenuation. The gallbladder is decompressed and therefore not accurately evaluated. The pancreas, spleen and adrenal glands are unremarkable. Symmetrically sized kidneys. No renal calculi or hydronephrosis bilaterally. Surgical changes of the stomach. Normal caliber loops of small and large bowel. The appendix is normal in caliber but contains either a prominent appendicolith or retained oral contrast. There is mild soft tissue stranding adjacent to the distal sigmoid colon and rectum which I suspect represents dependent free pelvic fluid, however, proctitis is within the differential. Normal caliber abdominal aorta. No retroperitoneal lymphadenopathy. The bladder is normal in appearance. Unremarkable CT appearance of the uterus. Trace amount of free pelvic fluid is likely physiologic. No inguinal lymphadenopathy. No acute osseous abnormality. CT/CT abdomen pelvis wo con IMPRESSION: -No definitive CT evidence for acute abnormality within the abdomen or pelvis. -There is mild soft tissue stranding adjacent to the distal sigmoid colon and rectum which I suspect represents dependent free pelvic fluid, however, proctitis is within the differential.
[2020-07-19 17:13] VITALS: BP 123/67; PULSE 70; RESP 16; TEMP 36.7; O2SAT 98; BMI 29.6
--- NOTE | 2020-07-19 19:51 | ED.ABDPAIN ---
HPI - Abdominal Pain General Chief Complaint: Abdominal Pain Stated Complaint: Nausea/Abdominal pain Time Seen by Provider: 07/19/20 21:08 Source: patient Mode of arrival: ambulatory Limitations: language barrier History of Present Illness HPI narrative: 39-year-old female with past medical history of gastrectomy, hiatal hernia with paraesophageal hernia repair, fibromyalgia, asthma, depression presents with abdominal pain, nausea, vomiting, and abnormal menstrual cycle. States the abdominal pain proceeded nausea and vomiting. Abnormal menstrual cycle included 2 days of very light bleeding and cramping, and she questions if she is . She does not report any chest pain or pressure, palpitations, shortness breath, abdominal distention, dysuria, hematuria, fevers or chills. MD elicited complaint: abdominal pain Pertinent past history: gastritis and other (Gastric sleeve) Onset (ago): week(s) Pain Consistency: constant Location: diffuse Severity: moderate Pain scale (0-10): 7 Quality: cramping and aching Exacerbating factors: eating, vomiting and movement Relieving factors: nothing Associated symptoms: nausea, vomiting and constipation Related Data Patient : No Home Medications Medication Instructions Recorded Confirmed albuterol sulfate 90 mcg/actuation 2 puff INHALATION Q4H PRN 02/17/20 02/17/20 aerosol inhaler cetirizine 10 mg tablet 10 mg PO DAILY PRN 02/17/20 02/17/20 fluoxetine 20 mg capsule 20 mg PO DAILY 02/17/20 02/17/20 Previous Rx's Medication Instructions Recorded hydrocortisone 1 appl TOPICAL TID PRN #20 g 03/26/20 ondansetron HCl 4 mg tablet 4 mg PO DAILY #14 tab 05/07/20 pantoprazole 40 mg tablet,delayed 40 mg PO DAILY #30 tab 05/07/20 release sucralfate 100 mg/mL oral 10 ml PO BID #420 ml 05/07/20 suspension docusate sodium 100 mg capsule 100 mg PO DAILY #30 cap 06/25/20 amoxicillin-pot clavulanate 1 tab PO Q12H 10 Days #20 tab 07/19/20 [Augmentin] ondansetron HCl [Zofran] 4 mg PO Q8H PRN #10 tab 07/19/20 Allergies Allergy/AdvReac Type Severity Reaction Status Date / Time animal dander Allergy Severe Anaphylaxis Verified 05/14/20 12:34 Review of Systems Review of Systems Constitutional: No Weight loss, No Fever, No Chills, No Night Sweats, No Fatigue, No Malaise ENT/Mouth: No Hearing loss, No Ear Pain, No Nasal Congestion, No Sinus Pain, No Hoarseness, No sore throat, No Rhinorrhea, No Swallowing Difficulty Eyes: No Eye Pain, No Swelling, No Redness, No Foreign Body, No Discharge, No Vision Changes Cardiovascular: No Chest Pain, No SOB, No Dyspnea on Exertion, No Orthopnea, No Edema, No Palpitations Respiratory: No Cough, No Sputum, No Wheezing, No Smoke Exposure, No Dyspnea Gastrointestinal: Positive Nausea, Positive Vomiting, no Diarrhea, positive abdominal Pain, No Hematochezia, No Melena Genitourinary: no irregular bleeding, No Dysuria, No Urinary Frequency, No Hematuria, No Urinary Incontinence, No Urgency, No Flank Pain, No Urinary Flow Changes, No Hesitancy Musculoskeletal: No joint pain, No Myalgias, No Joint Swelling Skin: No Skin Lesions, No rash Neuro: No Weakness, No Numbness, No Paresthesias, No Loss of Consciousness, No Dizziness, No Headache Psych: No Anxiety/Panic, No Depression, No SI/HI/AH/VH, No Social Issues Heme/Lymph: No Bruising, No Bleeding,No Lymphadenopathy Endocrine: No Polyuria, No Polydipsia, No Temperature Intolerance Yes all other systems are reviewed and are negative Physical Exam Vital Signs: Vital Signs: Last Vital Signs Temp 97.8 F 07/19/20 23:21 Pulse 59 07/19/20 23:21 Resp 18 07/19/20 23:21 BP 104/61 07/19/20 23:21 Pulse Ox 98 07/19/20 23:21 Body Mass Index 29.6 Appearance: Alert. Oriented X3. Mild distress. Eyes: Pupils equal, round and reactive to light. ENT: Pharynx normal. Neck: Normal inspection. Neck supple. CVS: Normal heart rate and rhythm. Pulses normal. Respiratory: No respiratory distress. Breath sounds normal. Abdomen: Soft and positive right lower quadrant tenderness, positive epigastric tenderness, negative rebound and rigidity Skin: Skin warm and dry. Normal skin color. Normal skin turgor. Extremities: No lower extremity edema. Neuro: No motor deficit. No sensory deficit. Course Course Course Narrative: 39-year-old female presents with abnormal menstrual cycle, abdominal pain and cramping, nausea and vomiting. Had bariatric surgery on 05/17/2020. Will order urine test to rule out , if patient is not we will pursue CT scan of the abdomen pelvis as she had recently had bariatric surgery. Urinalysis negative for . 8:46 p[address] labs still pending. CT scan of abdomen and pelvis shows no acute findings requiring emergent intervention, does show some stranding suggestive of proctitis consistent with patient's report constipation. Will treat with Augmentin. Patient verbalized understanding of and agrees to plan care discharge home. She does understands she must follow-up with bariatric surgeon MDM - Abdominal Pain Differential Diagnosis Differential diagnosis: Likely abdominal pain, acute appendicitis, calculus of kidney and constipation Medical Records Attestation: I reviewed the patient's medical records. Lab Data Attestation: I reviewed the patient's lab results. Result diagrams: 07/19/20 20:54 07/19/20 20:54 Labs: Lab Results 07/19/20 07/19/20 07/19/20 Range/Units 19:44 19:44 20:50 WBC (4.8-10.8) X10*3/uL RBC (4.20-5.50) X10*6/uL Hgb (12.0-16.0) g/dl Hct (37-47) % MCV (80-98) fL MCH (27.0-33.0) pg MCHC (31.0-35.0) g/dl RDW (11.0-16.0) % Plt Count (160-400) X10*3/uL MPV (9.4-12.3) fL Immature Gran % (Auto) (0.0-0.4) % Neut % (Auto) (45-73) % Lymph % (Auto) (20-40) % [place] % (Auto) (2-11) % Eos % (Auto) (0-4) % Baso % (Auto) (0-2) % Lymph # (Auto) (1.2-4.9) X10*3/uL [place] # (Auto) (0.1-1.2) X10*3/uL Eos # (Auto) (0.0-0.4) X10*3/uL Baso # (Auto) (0.0-0.2) X10*3/uL Abs Immat Gran (auto) (0.00-0.03) X10*3/uL Absolute Neuts (auto) (2.0-8.3) X10*3/uL Absolute Nucleated RBC (0.0-0.012) X10*3/uL Nucleated RBC % (auto) (0.0-0.2) /100WBC Sodium (135-145) mmol/L Potassium (3.3-5.1) mmol/L Chloride (96-108) mmol/L Carbon Dioxide (22-29) mmol/L Anion Gap (12-20) BUN (9-16) mg/dL Creatinine (0.5-1.4) mg/dL Estim Creat Clear Calc Estimated GFR Random Glucose (60-115) mg/dL Calcium (8.4-10.2) mg/dL Urine Color YELLOW Urine Appearance CLEAR Urine pH 6.0 (5.0-8.0) Ur Specific [place] 1.025 (1.005-1.025) Urine Protein NEG (NEG-TRACE) MG/DL Urine Glucose (UA) NEG (NEG) MG/DL Urine Ketones 15 (NEG) MG/DL Urine Blood NEG (NEG) Urine Nitrite NEG (NEG) Ur Leukocyte Esterase NEG (NEG) Urine Test NEGATIVE (NEGATIVE) COVID-19 ([facility]KH[facility]ER) Negative (Negative) COVID-19 Clin Com See Note 07/19/20 07/19/20 Range/Units 20:54 20:54 WBC 7.4 (4.8-10.8) X10*3/uL RBC 4.16 L (4.20-5.50) X10*6/uL Hgb 11.2 L (12.0-16.0) g/dl Hct 32.8 L (37-47) % MCV 78.8 L (80-98) fL MCH 26.9 L (27.0-33.0) pg MCHC 34.1 (31.0-35.0) g/dl RDW 14.2 (11.0-16.0) % Plt Count 275 (160-400) X10*3/uL MPV 10.5 (9.4-12.3) fL Immature Gran % (Auto) 0.3 (0.0-0.4) % Neut % (Auto) 46.9 (45-73) % Lymph % (Auto) 41.1 H (20-40) % [place] % (Auto) 7.6 (2-11) % Eos % (Auto) 3.7 (0-4) % Baso % (Auto) 0.4 (0-2) % Lymph # (Auto) 3.0 (1.2-4.9) X10*3/uL [place] # (Auto) 0.6 (0.1-1.2) X10*3/uL Eos # (Auto) 0.3 (0.0-0.4) X10*3/uL Baso # (Auto) 0.0 (0.0-0.2) X10*3/uL Abs Immat Gran (auto) 0.02 (0.00-0.03) X10*3/uL Absolute Neuts (auto) 3.5 (2.0-8.3) X10*3/uL Absolute Nucleated RBC 0.000 (0.0-0.012) X10*3/uL Nucleated RBC % (auto) 0.0 (0.0-0.2) /100WBC Sodium 140 (135-145) mmol/L Potassium 3.5 D (3.3-5.1) mmol/L Chloride 105 (96-108) mmol/L Carbon Dioxide 27 (22-29) mmol/L Anion Gap 12 (12-20) BUN 16 D (9-16) mg/dL Creatinine 0.60 (0.5-1.4) mg/dL Estim Creat Clear Calc 114.7 Estimated GFR > 60 Random Glucose 97 (60-115) mg/dL Calcium 8.9 (8.4-10.2) mg/dL Urine Color Urine Appearance Urine pH (5.0-8.0) Ur Specific [place] (1.005-1.025) Urine Protein (NEG-TRACE) MG/DL Urine Glucose (UA) (NEG) MG/DL Urine Ketones (NEG) MG/DL Urine Blood (NEG) Urine Nitrite (NEG) Ur Leukocyte Esterase (NEG) Urine Test (NEGATIVE) COVID-19 ([facility]KHWINDER) (Negative) COVID-19 Clin Com Imaging Data CT scan - abdomen: Attestation: I personally reviewed and interpreted this imaging study as follows: Radiologist's impression: EXAMINATION: CT ABDOMEN AND PELVIS WITHOUT CONTRAST CLINICAL INFORMATION: 39-year-old female with abdominal pain. Nausea and vomiting. COMPARISON: Abdominal ultrasound 03/19/[address] abdomen pelvis 01/25/2019 TECHNIQUE: Multidetector volumetric imaging was performed from the superior aspect of the liver through the pubic symphysis. Sagittal and coronal reformatted images were obtained on the technologist's workstation. This CT examination was performed using dose optimization techniques as appropriate, variously including the following: *Automated exposure control *Adjustment of mA and/or kV according to patient size (this includes techniques or standardized protocols for targeted exams where dose is matched to indication/reason for exam; i.e. extremities or head) *Use of iterative reconstruction technique DLP: 552 mGy-cm FINDINGS: Visualized lung bases are well aerated. The liver demonstrates normal size, contour and attenuation. The gallbladder is decompressed and therefore not accurately evaluated. The pancreas, spleen and adrenal glands are unremarkable. Symmetrically sized kidneys. No renal calculi or hydronephrosis bilaterally. Surgical changes of the stomach. Normal caliber loops of small and large bowel. The appendix is normal in caliber but contains either a prominent appendicolith or retained oral contrast. There is mild soft tissue stranding adjacent to the distal sigmoid colon and rectum which I suspect represents dependent free pelvic fluid, however, proctitis is within the differential. Normal caliber abdominal aorta. No retroperitoneal lymphadenopathy. The bladder is normal in appearance. Unremarkable CT appearance of the uterus. Trace amount of free pelvic fluid is likely physiologic. No inguinal lymphadenopathy. No acute osseous abnormality. CT/CT abdomen pelvis wo con IMPRESSION: -No definitive CT evidence for acute abnormality within the abdomen or pelvis. -There is mild soft tissue stranding adjacent to the distal sigmoid colon and rectum which I suspect represents dependent free pelvic fluid, however, proctitis is within the differential. Discharge Plan Discharge Clinical Impression: Acute proctitis Constipation Qualifiers: Constipation type: unspecified constipation type Qualified Code(s): K59.00 - Constipation, unspecified Patient Disposition: Home, Self-Care Instructions: Constipation (ED), Proctitis (ED) Additional Instructions: You were evaluated for abdominal pain, nausea and abnormal menstrual cycle. Your test is negative, your CT scan of the abdomen and pelvis shows some inflammation in the lower colon consider proctitis. This is most likely caused by your constipation. Please use MiraLax and Colace on a daily basis to help soften stools. We prescribed Augmentin for you for abdominal infection. Please complete the entire course of this medication, take this twice a day for the next 10 days. Please drink plenty of fluids. If you develop fevers, chills, intractable nausea and vomiting, please return to the emergency department as this may be an indication of a more serious infection Thank you for choosing this emergency department for evaluation. Please follow-up with primary care physician as needed. Return to the emergency department for any new, concerning, or worsening symptoms. Prescriptions: New amoxicillin-pot clavulanate [Augmentin] 875-125 mg tablet 1 tab PO Q12H 10 Days Qty: 20 RF: 0 ondansetron HCl [Zofran] 4 mg tablet 4 mg PO Q8H PRN (Reason: nausea and vomiting) Qty: 10 RF: 0 No Action hydrocortisone 2.5 % cream 1 appl topical TID PRN (Reason: itching) Qty: 20 RF: 0 fluoxetine 20 mg capsule 20 mg PO DAILY RF: 0 cetirizine 10 mg tablet 10 mg PO DAILY PRN (Reason: Allergic Reaction) RF: 0 albuterol sulfate 90 mcg/actuation HFA aerosol inhaler 2 puff inhalation Q4H PRN (Reason: Shortness Of Breath) RF: 0 pantoprazole 40 mg tablet,delayed release (DR/EC) 40 mg PO DAILY Qty: 30 RF: 2 sucralfate 100 mg/mL suspension 10 ml PO BID Qty: 420 RF: 2 ondansetron HCl [Zofran] 4 mg tablet 4 mg PO DAILY Qty: 14 RF: 0 docusate sodium [Colace] 100 mg capsule 100 mg PO DAILY Qty: 30 RF: 2 Discharge Date/Time: 07/20/20 00:48 [facility] Past Medical History Attestation statement: The following information was validated with the patient. Source: old records reviewed Medical History (Updated 07/19/20 @ 23:17 by Soledad Gallo NP) Anxiety and depression Asthma Depression Fibromyalgia GERD (gastroesophageal reflux disease) Hiatal hernia Hx of allergic rhinitis Hx of chest pain Liver fibrosis Low back pain Morbid obesity PONV (postoperative nausea and vomiting) Sciatica of left side Seasonal allergies Vitamin D deficiency Surgical History H/O bilateral breast biopsy History of sleeve gastrectomy Hx of carpal tunnel repair Hx of tubal ligation Family History Family History Mother Cancer Hypertension Arthritis Father Hypertension Diabetes Skin cancer Diverticulitis Brother Hypertension Daughter ADHD Son No problems noted. Social History Social History Alcohol intake: never Smoking Status: Never smoker Advance Directives: No Advance Directives Information Provided: Yes Patient : No service: No Current occupational status: disabled
[2020-07-19 19:58] LABS: Urine Pregnancy NEGATIVE (NEGATIVE)
[2020-07-19 19:59] LABS: UPreg QC Valid YES
[2020-07-19 20:28] VITALS: BP 107/68; PULSE 57; RESP 18; TEMP 36.9; O2SAT 99
[2020-07-19 21:00] LABS: MANUAL DIFF FLAG NO
[2020-07-19 21:01] LABS: Basophils Percent Auto 0.4 % (0-2); Eosinophils Absolute Auto 0.3 X10*3/uL (0.0-0.4); Eosinophils Percent Auto 3.7 % (0-4); Hematocrit 32.8 % (37-47); Hemoglobin 11.2 g/dl (12.0-16.0); Imm Gran Abs Auto 0.02 X10*3/uL (0.00-0.03); Imm Gran Pct Auto 0.3 % (0.0-0.4); Lymphocytes Percent Auto 41.1 % (20-40); Mean Corpuscular HGB Conc 34.1 g/dl (31.0-35.0); Mean Corpuscular Hemoglobin 26.9 pg (27.0-33.0); Mean Corpuscular Volume 78.8 fL (80-98); Mean Platelet Volume 10.5 fL (9.4-12.3); Monocytes Absolute Auto 0.6 X10*3/uL (0.1-1.2); Monocytes Percent Auto 7.6 % (2-11); Neutrophils Absolute Auto 3.5 X10*3/uL (2.0-8.3); Neutrophils Percent Auto 46.9 % (45-73); Platelet Count 275 X10*3/uL (160-400); Red Blood Count 4.16 X10*6/uL (4.20-5.50); Red Cell Distribution Width 14.2 % (11.0-16.0); White Blood Count 7.4 X10*3/uL (4.8-10.8)
[2020-07-19 21:16] LABS: COVID-19 Test Negative (Negative); IDNOW Serial# 9DD0AD1C
[2020-07-19 21:29] LABS: Anion Gap 12 (12-20); Blood Urea Nitrogen 16 mg/dL (9-16); Calcium 8.9 mg/dL (8.4-10.2); Carbon Dioxide 27 mmol/L (22-29); Chloride 105 mmol/L (96-108); Creatinine Clr Calc Pharmacy 114.7; Estimated Glomerular Filt Rate > 60; Glucose Random 97 mg/dL (60-115); Potassium 3.5 mmol/L (3.3-5.1); Sodium 140 mmol/L (135-145)
[2020-07-19] MEDS: ondansetron HCL 4 MG/2 ML VIAL IVPUSH (21:57)
[2020-07-19] MEDS: 0.9 % Sodium Chloride 1,000 ML 999 ML IVCONT (21:57)
[2020-07-19 22:56] LABS: Glucose Urine UA NEG (NEG); Leukocyte Esterase Urine NEG (NEG); Nitrite Urine NEG (NEG); Specific Gravity - Urine 1.025 (1.005-1.025); Urine Blood NEG (NEG); Urine Ketones 15 MG/DL (NEG); Urine Protein NEG (NEG-TRACE)
[2020-07-19 22:58] LABS: Appearance Urine CLEAR; Color Urine YELLOW
[2020-07-19 23:21] VITALS: BP 104/61; PULSE 59; RESP 18; TEMP 36.6; O2SAT 98
[2020-07-20] MEDS: Amoxicillin/Potassium Clav 875 MG TABLET PO (00:04)
== END 2020-07-20 00:48 | disposition home or self-care (01) ==
PROVIDERS: Nurse Practitioner Family; Emergency Provider Internal Medicine; PCP Internal Medicine
DX: K62.89 Other specified diseases of anus and rectum (principal); K59.00 Constipation, unspecified; R10.9 Unspecified abdominal pain; Z20.822 Contact with and (suspected) exposure to COVID-19; Z98.84 Bariatric surgery status; Z79.899 Other long term (current) drug therapy
CPT/HCPCS: 36415; 74176; 80048; 81003; 81025; 85025; 87635; 96365; 96375; 99284; J2405

== ENCOUNTER → 2020-07-25 08:07 | Outpatient (BNVA) | payer OTHER, SELFPAY | PROVIDERS: PCP Internal Medicine; Visit Provider Surgery | DX: E66.3 Overweight (principal); Z68.29 Body mass index [BMI] 29.0-29.9, adult | CPT/HCPCS: 99212 ==

== ENCOUNTER → 2020-08-27 07:44 | Outpatient (BNVA) | payer OTHER, SELFPAY | PROVIDERS: PCP Internal Medicine; Visit Provider Surgery | DX: E66.3 Overweight (principal); Z68.26 Body mass index [BMI] 26.0-26.9, adult; Z71.3 Dietary counseling and surveillance | CPT/HCPCS: Q3014 ==

== ENCOUNTER → 2020-09-13 08:01 | Outpatient (BNVA) | payer OTHER, SELFPAY | PROVIDERS: PCP Internal Medicine; Referring Provider Internal Medicine; Visit Provider Physician Assistant | DX: R19.7 Diarrhea, unspecified (principal) | CPT/HCPCS: 99202 ==

== ENCOUNTER 2020-10-01 08:05 | Outpatient (REF) | payer OTHER, SELFPAY ==
[2020-10-01 09:12] LABS: C Reactive Protein 0.11 mg/dL (< or = 0.50)
[2020-10-01 09:23] LABS: Erythrocyte Sedimentation Rate 13 MM/HR (0-20)
== END 2020-10-01 08:06 | disposition home or self-care (01) ==
LOC: HO.LAB 08:05
PROVIDERS: PCP Internal Medicine; Visit Provider Physician Assistant
DX: R19.7 Diarrhea, unspecified (principal); K62.5 Hemorrhage of anus and rectum
CPT/HCPCS: 36415; 85652; 86140

== ENCOUNTER → 2020-10-08 07:26 | Outpatient (BNVA) | payer OTHER, SELFPAY | PROVIDERS: PCP Internal Medicine; Visit Provider Surgery | DX: E66.3 Overweight (principal); Z68.25 Body mass index [BMI] 25.0-25.9, adult | CPT/HCPCS: Q3014 ==

== ENCOUNTER 2020-10-24 09:52 | Day surgery (SDC) | payer OTHER, SELFPAY ==
[2020-10-24 10:32] VITALS: BMI 26.8
[2020-10-24 10:40] VITALS: BP 118/71; PULSE 57; RESP 16; TEMP 36.2; O2SAT 98
--- NOTE | 2020-10-24 12:18 | P.CONAN_ITS ---
HPI - Anesthesia Eval Consult details Narrative: 40 yo female patient for colonoscopy [facility] Active Problems Active Problems: All Active Problems (Updated 09/13/20 @ 08:42 by Lizzy Hernández PA-C) Rectal bleeding (Acute) Frequent loose stools (Acute) Overweight (Acute) Constipation (Acute) BMI 31.0-31.9,adult (Acute) BMI 33.0-33.9,adult (Acute) S/P repair of paraesophageal hernia (Acute) S/P laparoscopic sleeve gastrectomy (Acute) Liver fibrosis (Acute) Hiatal hernia (Acute) Low back pain (Acute) Obesity (Acute) BMI 38.0-38.9,adult (Acute) BMI 37.0-37.9, adult (Acute) BMI over 35 (Acute) Nausea (Acute) Vitamin D deficiency (Acute) GERD (gastroesophageal reflux disease) (Acute) Fibromyalgia (Acute) Asthma (Acute) Depression (Acute) Morbid obesity (Acute) Past Medical History Medical History Anxiety and depression Asthma Depression Fibromyalgia GERD (gastroesophageal reflux disease) Hiatal hernia Hx of allergic rhinitis Hx of chest pain Liver fibrosis Low back pain Morbid obesity Overweight PONV (postoperative nausea and vomiting) Sciatica of left side Seasonal allergies Vitamin D deficiency Family History Family History Mother Cancer Hypertension Arthritis Father Hypertension Diabetes Skin cancer Diverticulitis Brother Hypertension Daughter ADHD Son No problems noted. Paternal Uncle Colon cancer Family history of problems with anesthesia: No Surgical History Surgical History H/O bilateral breast biopsy History of esophagogastroduodenoscopy (EGD) History of sleeve gastrectomy Hx of carpal tunnel repair Hx of tubal ligation History of Problems with Anesthesia: Yes (PONV) Social History Social History Are you a primary anesthesiologist and critical care to a significant other at home: Yes (17+18 year old children) Do you presently have visiting nurse or other home services: No Alcohol intake: never Patient Tobacco Use Status: Never used Tobacco Second Hand Smoke Exposure: No Use of substances other than those prescribed or required for medical reasons: No Are you DNR?: No Advance Directives: No Advance Directives Information Provided: Yes Advance Directives on File: No service: No Current occupational status: disabled Meds Allergies Allergy/AdvReac Type Severity Reaction Status Date / Time animal dander Allergy Severe Anaphylaxis Verified 09/13/20 08:10 Active Medications: Current Medications Generic Name Dose Route Start Last Admin Trade Name Love PRN Reason Stop Dose Admin Lactated Ringer's 1,000 mls @ 100 mls/hr 10/24/20 12:30 Lr IVCONT .Q10H JOSE G Exam Exam Date and Time: October 24, 2020 1218 Height,Weight and Vital Signs: Height 5 ft 1 in Weight 64.41 kg Last Vital Signs Temp 97.1 F 10/24/20 10:40 Pulse 57 10/24/20 10:40 Resp 16 10/24/20 10:40 BP 118/71 10/24/20 10:40 Pulse Ox 98 10/24/20 10:40 Airway Mallampati Class: II TM Dist: >3cm Neck ROM: Full Heart: RRR Lungs: CTAB Assessment and Plan Assessment Anesthesia Assessment: Anesthesia Plan Discussed and Chart Reviewed Final Anesthetic Review Family History of Problems with Anesthesia: No History of Problems with Anesthesia: Yes (PONV) NPO: Yes ASA Class: III Final Preanesthetic Review: No Changes in Pt Med Stat, Meds/Allgs Chart Reviewed, Consent Obtained/Reviewed and Anes Risks/Benef Reviewed Patient Risk: Intermediate Procedure Risk: Low Assessment/Block/Sedation in SS: Assess/Block/Sedation-SS Anesthetic Plan Anesthetic Plan: MAC: Disposition: Standard PACU
--- NOTE | 2020-10-24 13:03 | MHC.SHP ---
Pre-Procedural Eval Section A Date of Service: 10/24/20 Section B Chief Complaint: diarrhea Details of Present Illness: see H&P no changes Relevant Family History (Specify if Yes): No Relevant Social History: None Medical History: No relevant PMH History of Previous Operations: No relevant previous surgery Allergies: Allergies Allergy/AdvReac Type Severity Reaction Status Date / Time animal dander Allergy Severe Anaphylaxis Verified 09/13/20 08:10 Review of Systems Sugical H&P ROS: Negative: Constitution, Cardiovascular, Respiratory, Neurological, Psychiatric, Hem-Onc, Allergic/Immunologic, Gastrointestinal, Genitourinary, Musculoskeletal, Integumentary, Endocrine and Eyes/Ears/Nose/Throat Exam Surgical H&P Exam: Normal: HEENT, Normal: Heart, Normal: Lungs, Normal: Extremities, Normal: Abdomen, Normal: Skin and Normal: Neurological Plan Diagnosis/Plan: Unchanged I have reviewed the history and physical and performed a pertinent physical examination on my patient. No changes have occurred unless specified.
--- NOTE | 2020-10-24 13:27 | MHC.SHP ---
Pre-Procedural Eval Section A Date of Service: 10/24/20 Section B Chief Complaint: diarrhea Allergies: Allergies Allergy/AdvReac Type Severity Reaction Status Date / Time animal dander Allergy Severe Anaphylaxis Verified 09/13/20 08:10 Plan I have reviewed the history and physical and performed a pertinent physical examination on my patient. No changes have occurred unless specified.
--- NOTE | 2020-10-24 13:29 | P.BOP_ITS ---
Brief Operative Note Date of Service: 10/24/20 Pre-op diagnosis: diarrhea, abnormal ct scan of colon Post-op diagnosis: same Surgeon: Hira Mendez Anesthesia: MAC Was an Orthotic Practitioner used for this Procedure?: No Estimated blood loss (mL): 2 Pathology: other (bxs ti and sigmoid) Condition: stable Disposition: PACU
[2020-10-24 13:32] VITALS: BP 91/55; PULSE 65; RESP 16; TEMP 36.2; O2SAT 99
[2020-10-24 13:48] VITALS: BP 102/57; PULSE 60; RESP 16; TEMP 36.2; O2SAT 100
--- NOTE | 2020-10-24 13:49 | OP_ITS ---
SURGEON: Hira Mendez MD INDICATIONS: Diarrhea and abnormal CT scan of the colon. PREOPERATIVE DIAGNOSIS: POSTOPERATIVE DIAGNOSIS: PROCEDURE PERFORMED: Colonoscopy to the terminal ileum with biopsy. ESTIMATED BLOOD LOSS: COMPLICATIONS: ANESTHESIA: ASSISTANTS: SPECIMENS: MEDICATIONS: Monitored anesthesia care. DESCRIPTION OF PROCEDURE: History and physical performed. The risks and benefits of the procedure were explained to the patient. Informed consent was obtained. The patient was placed in the left lateral decubitus position. A digital rectal exam was performed and was found to be normal. The Olympus pediatric video colonoscope was introduced into the rectum and advanced to the cecum without difficulty. The cecum was identified by transillumination, palpation, and identification of ileocecal valve. Examination was performed and the scope was removed. She tolerated the procedure well and was taken to recovery area in stable condition. FINDINGS: The terminal ileum was normal. The visualized colonic mucosa was normal. The quality of prep was good. There was no evidence of colitis. The sigmoid was somewhat redundant. Biopsies were obtained from the terminal ileum and sigmoid. No colitis was identified. Retroflexed examination was normal. IMPRESSION: Normal colonoscopy. RECOMMENDATION: Follow up the biopsy results. Screening colonoscopy every 10 years starting at age 45 for average risk patients. MD EVELYN Ann/JULY / [id number] MTDD
--- NOTE | 2020-10-24 14:14 | PC.NURSE ---
Discharge instructions given by Ayala Lopez RN
== END 2020-10-24 14:16 | disposition home or self-care (01) ==
PROVIDERS: PCP Internal Medicine; Visit Provider Internal Medicine Gastroenterology
PROC: 0DJD8ZZ Inspection of Lower Intestinal Tract, Via Natural or Artificial Opening Endoscopic (ICD-10-PCS; CPT 45378; principal; 2020-10-24 12:30)
DX: R93.3 Abnormal findings on diagnostic imaging of other parts of digestive tract (principal); R19.7 Diarrhea, unspecified; F32.9 Major depressive disorder, single episode, unspecified; J45.909 Unspecified asthma, uncomplicated; K74.00 Hepatic fibrosis, unspecified; Z98.84 Bariatric surgery status; E55.9 Vitamin D deficiency, unspecified
CPT/HCPCS: 45380; 88305; J1100; J2405

== ENCOUNTER → 2020-11-14 11:16 | Outpatient (BNVA) | payer OTHER, SELFPAY | PROVIDERS: PCP Internal Medicine; Visit Provider Physician Assistant | DX: R19.7 Diarrhea, unspecified (principal) | CPT/HCPCS: Q3014 ==

== ENCOUNTER → 2020-11-23 08:14 | Outpatient (BNVA) | payer OTHER, SELFPAY | PROVIDERS: PCP Internal Medicine; Visit Provider Physician Assistant Surgical | CPT/HCPCS: Q3014 ==

== ENCOUNTER → 2021-01-18 08:04 | Outpatient (BNVA) | payer OTHER, SELFPAY | PROVIDERS: PCP Internal Medicine; Visit Provider Surgery | DX: E66.3 Overweight (principal) | CPT/HCPCS: Q3014 ==

== ENCOUNTER 2021-01-22 06:17 | Outpatient (REF) | payer OTHER, SELFPAY ==
[2021-01-22 06:26] LABS: MANUAL DIFF FLAG NO
[2021-01-22 07:29] LABS: Basophils Percent Auto 0.5 % (0-2); Eosinophils Absolute Auto 0.2 X10*3/uL (0.0-0.4); Eosinophils Percent Auto 3.3 % (0-4); Hematocrit 35.3 % (37.0-47.0); Hemoglobin 11.6 g/dl (12.0-16.0); Imm Gran Abs Auto 0.01 X10*3/uL (0.00-0.03); Imm Gran Pct Auto 0.2 % (0.0-0.4); Lymphocytes Absolute Auto 2.9 X10*3/uL (1.2-4.9); Lymphocytes Percent Auto 48.9 % (20-40); Mean Corpuscular HGB Conc 32.9 g/dl (31.0-35.0); Mean Corpuscular Hemoglobin 27.5 pg (27.0-33.0); Mean Corpuscular Volume 83.6 fL (80.0-98.0); Mean Platelet Volume 10.1 fL (9.4-12.3); Monocytes Absolute Auto 0.4 X10*3/uL (0.1-1.2); Monocytes Percent Auto 6.2 % (2-11); Neutrophils Absolute Auto 2.4 x10*3/uL (2.0-8.3); Neutrophils Percent Auto 40.9 % (45-73); Platelet Count 284 X10*3/uL (160-400); Red Blood Count 4.22 X10*6/uL (4.20-5.50); Red Cell Distribution Width 13.3 % (11.0-16.0); White Blood Count 5.8 X10*3/uL (4.8-10.8)
[2021-01-22 08:16] LABS: Estimated Average Glucose 94 mg/dL; Hemoglobin A1c % 4.9 %
[2021-01-22 08:25] LABS: Alanine Aminotransferase 16 U/L (0-31); Albumin Level 3.9 g/dL (3.5-5.0); Alkaline Phosphatase 60 U/L (39-117); Anion Gap 12 (12-20); Aspartate Amino Transferase 16 U/L (5-31); Bilirubin Total 0.6 mg/dL (0.0-1.0); Blood Urea Nitrogen 10 mg/dL (9-16); C Reactive Protein 0.17 mg/dL (< or = 0.50); Calcium 8.9 mg/dL (8.4-10.2); Carbon Dioxide 25 mmol/L (22-29); Chloride 108 mmol/L (96-108); Cholesterol 190 mg/dL; Estimated Glomerular Filt Rate > 60; Glucose Random 86 mg/dL (60-115); HDL Cholesterol 75 mg/dL; Iron 84 mcg/dL (30-160); LDL Cholesterol Calculated 101 mg/dl; Percent Iron Saturation 24 % (15-50); Potassium 4.2 mmol/L (3.3-5.1); Sodium 141 mmol/L (135-145); Total Iron Binding Capacity 347 mcg/dL (228-428); Total Protein 6.9 g/dL (6.5-8.0); Triglycerides 74 mg/dL; Unsaturated Iron Binding 263 ug/dL
[2021-01-22 08:29] LABS: Ferritin 9 ng/mL (10-122); TSH reflex Free T4 1.95 uIU/mL (0.32-4.0); Vitamin D 25-OH Total 27.6 ng/mL (>30)
[2021-01-22 09:00] LABS: Insulin 7 uU/mL (2-29)
[2021-01-22 09:20] LABS: Folate 19.3 ng/mL (> or = 4.0); Vitamin B12 729 pg/mL (200-900)
[2021-01-23 16:41] LABS: Calcium (PTHI) 8.9 mg/dL (8.6-10.2); PTHI 48 pg/mL (14-64)
[2021-01-24 21:26] LABS: Zinc 64 mcg/dL (60-130)
[2021-01-25 13:12] LABS: Vitamin B1 9 nmol/L (8-30)
[2021-01-27 16:57] LABS: Vitamin A 30 mcg/dL (38-98)
== END 2021-01-22 06:18 | disposition home or self-care (01) ==
LOC: HO.LAB 06:17
PROVIDERS: PCP Internal Medicine; Visit Provider Surgery
DX: E66.3 Overweight (principal); K91.2 Postsurgical malabsorption, not elsewhere classified; Z90.3 Acquired absence of stomach [part of]
CPT/HCPCS: 36415; 80053; 80061; 82306; 82607; 82728; 82746; 83036; 83525; 83540; 83970; 84425; 84443; 84590; 84630; 85025; 86140

== ENCOUNTER 2021-01-25 07:00 | Outpatient (RCR) | payer OTHER, SELFPAY | END 2021-01-25 07:53 | disposition home or self-care (01) | LOC: HO.PTCHIC 07:00 | PROVIDERS: PCP Internal Medicine; Visit Provider Internal Medicine | DX: M54.9 Dorsalgia, unspecified (principal) | CPT/HCPCS: 97110; 97140; 97161 ==

== ENCOUNTER → 2021-02-18 08:12 | Outpatient (BNVA) | payer OTHER, SELFPAY | PROVIDERS: PCP Internal Medicine; Visit Provider Physician Assistant | DX: Z13.89 Encounter for screening for other disorder (principal) | CPT/HCPCS: Q3014 ==

== ENCOUNTER 2021-03-15 09:50 | Outpatient (REF) | payer OTHER, SELFPAY ==
[2021-03-15 10:45] LABS: Binax Internal Control QC Valid; Binax Lot number: 9864; Binax Now Covid-19 Ag Positive (Negative)
== END 2021-03-15 09:51 | disposition home or self-care (01) ==
LOC: HO.LAB 09:50
PROVIDERS: Visit Provider Internal Medicine
DX: Z20.822 Contact with and (suspected) exposure to COVID-19 (principal)
CPT/HCPCS: 36415; C9803

== ENCOUNTER → 2021-05-17 15:23 | Outpatient (BNVA) | payer OTHER, SELFPAY | PROVIDERS: PCP Internal Medicine; Visit Provider Physician Assistant | DX: E66.01 Morbid (severe) obesity due to excess calories (principal); E55.9 Vitamin D deficiency, unspecified; Z98.84 Bariatric surgery status; Z68.27 Body mass index [BMI] 27.0-27.9, adult | CPT/HCPCS: 99212 ==

== ENCOUNTER 2021-06-19 07:17 | Outpatient (REF) | payer OTHER, SELFPAY ==
[2021-06-19 07:56] LABS: MANUAL DIFF FLAG NO
[2021-06-19 08:30] LABS: Basophils Percent Auto 0.9 % (0-2); Eosinophils Absolute Auto 0.2 X10*3/uL (0.0-0.4); Eosinophils Percent Auto 3.2 % (0-4); Hematocrit 35.2 % (37.0-47.0); Hemoglobin 11.4 g/dl (12.0-16.0); Imm Gran Abs Auto 0.01 X10*3/uL (0.00-0.03); Imm Gran Pct Auto 0.2 % (0.0-0.4); Lymphocytes Absolute Auto 2.1 X10*3/uL (1.2-4.9); Lymphocytes Percent Auto 45.9 % (20-40); Mean Corpuscular HGB Conc 32.4 g/dl (31.0-35.0); Mean Corpuscular Hemoglobin 26.6 pg (27.0-33.0); Mean Corpuscular Volume 82.2 fL (80.0-98.0); Mean Platelet Volume 9.9 fL (9.4-12.3); Monocytes Absolute Auto 0.3 X10*3/uL (0.1-1.2); Monocytes Percent Auto 7.1 % (2-11); Neutrophils Percent Auto 42.7 % (45-73); Platelet Count 281 X10*3/uL (160-400); Red Blood Count 4.28 X10*6/uL (4.20-5.50); Red Cell Distribution Width 13.3 % (11.0-16.0); White Blood Count 4.7 X10*3/uL (4.8-10.8)
[2021-06-19 09:16] LABS: Alanine Aminotransferase 13 U/L (0-31); Albumin Level 3.8 g/dL (3.5-5.0); Alkaline Phosphatase 59 U/L (39-117); Anion Gap 11 (12-20); Aspartate Amino Transferase 14 U/L (5-31); Bilirubin Total 0.5 mg/dL (0.0-1.0); Blood Urea Nitrogen 10 mg/dL (9-16); C Reactive Protein 0.06 mg/dL (< or = 0.50); Calcium 9.1 mg/dL (8.4-10.2); Carbon Dioxide 28 mmol/L (22-29); Chloride 106 mmol/L (96-108); Estimated Glomerular Filt Rate > 60; Ferritin 7 ng/mL (10-122); Glucose Random 88 mg/dL (60-115); HIV AB/AG Nonreactive (Nonreactive); HIV Num 1 0.05 S/CO (0.00-0.99); Iron 52 mcg/dL (30-160); Percent Iron Saturation 14 % (15-50); Potassium 4.8 mmol/L (3.3-5.1); Sodium 140 mmol/L (135-145); Thyroid Stimulating Hormone 1.22 uIU/mL (0.32-4.0); Total Iron Binding Capacity 370 mcg/dL (228-428); Total Protein 6.8 g/dL (6.5-8.0); Unsaturated Iron Binding 318 ug/dL
== END 2021-06-19 07:18 | disposition home or self-care (01) ==
LOC: HO.LAB 07:17
PROVIDERS: Absent Provider Internal Medicine; PCP Internal Medicine; Visit Provider Family Medicine
DX: L29.9 Pruritus, unspecified (principal); R23.8 Other skin changes
CPT/HCPCS: 36415; 80053; 82728; 83540; 84443; 85025; 86140; 87389

== ENCOUNTER → 2021-08-30 14:42 | Outpatient (BNVA) | payer OTHER, SELFPAY | PROVIDERS: PCP Internal Medicine; Visit Provider Physician Assistant Surgical | DX: E66.3 Overweight (principal); Z68.25 Body mass index [BMI] 25.0-25.9, adult; Z98.84 Bariatric surgery status | CPT/HCPCS: 99212 ==

== ENCOUNTER → 2021-11-13 14:21 | Outpatient (BNVA) | payer OTHER, SELFPAY | PROVIDERS: PCP Internal Medicine; Referring Provider Physician Assistant; Visit Provider Physician Assistant Surgical | DX: E66.3 Overweight (principal); Z68.25 Body mass index [BMI] 25.0-25.9, adult; Z98.84 Bariatric surgery status | CPT/HCPCS: 99212 ==

== ENCOUNTER 2021-11-19 10:13 | Outpatient (REF) | payer OTHER, SELFPAY ==
[2021-11-19 10:36] LABS: MANUAL DIFF FLAG NO
[2021-11-19 11:07] LABS: Basophils Percent Auto 0.7 % (0-2); Eosinophils Absolute Auto 0.2 X10*3/uL (0.0-0.4); Eosinophils Percent Auto 2.7 % (0-4); Hematocrit 35.6 % (37.0-47.0); Hemoglobin 12.2 g/dl (12.0-16.0); Imm Gran Abs Auto 0.01 X10*3/uL (0.00-0.03); Imm Gran Pct Auto 0.2 % (0.0-0.4); Lymphocytes Absolute Auto 2.2 X10*3/uL (1.2-4.9); Lymphocytes Percent Auto 38.3 % (20-40); Mean Corpuscular HGB Conc 34.3 g/dl (31.0-35.0); Mean Corpuscular Hemoglobin 27.5 pg (27.0-33.0); Mean Corpuscular Volume 80.4 fL (80.0-98.0); Mean Platelet Volume 9.8 fL (9.4-12.3); Monocytes Absolute Auto 0.4 X10*3/uL (0.1-1.2); Monocytes Percent Auto 7.3 % (2-11); Neutrophils Absolute Auto 2.9 x10*3/uL (2.0-8.3); Neutrophils Percent Auto 50.8 % (45-73); Platelet Count 310 X10*3/uL (160-400); Red Blood Count 4.43 X10*6/uL (4.20-5.50); Red Cell Distribution Width 14.6 % (11.0-16.0); White Blood Count 5.6 X10*3/uL (4.8-10.8)
[2021-11-19 11:32] LABS: Alanine Aminotransferase 12 U/L (0-31); Albumin Level 4.1 g/dL (3.5-5.0); Alkaline Phosphatase 64 U/L (39-117); Anion Gap 14 (12-20); Aspartate Amino Transferase 16 U/L (5-31); Bilirubin Total 0.4 mg/dL (0.0-1.0); Blood Urea Nitrogen 6 mg/dL (9-16); C Reactive Protein 0.06 mg/dL (< or = 0.50); Calcium 9.1 mg/dL (8.4-10.2); Carbon Dioxide 26 mmol/L (22-29); Chloride 104 mmol/L (96-108); Cholesterol 199 mg/dL; Estimated Glomerular Filt Rate > 60; Glucose Random 87 mg/dL (60-115); HDL Cholesterol 77 mg/dL; Iron 80 mcg/dL (30-160); LDL Cholesterol Calculated 97 mg/dl; Percent Iron Saturation 22 % (15-50); Potassium 3.9 mmol/L (3.3-5.1); Sodium 140 mmol/L (135-145); Total Iron Binding Capacity 369 mcg/dL (228-428); Total Protein 7.4 g/dL (6.5-8.0); Triglycerides 128 mg/dL; Unsaturated Iron Binding 289 ug/dL
[2021-11-19 11:46] LABS: Estimated Average Glucose 97 mg/dL
[2021-11-19 11:56] LABS: Ferritin 8 ng/mL (10-250); TSH reflex Free T4 1.25 uIU/mL (0.32-4.0); Vitamin D 25-OH Total 31.5 ng/mL (>30)
[2021-11-19 12:22] LABS: Folate > 20.0 ng/mL (> or = 4.0); Vitamin B12 692 pg/mL (200-900)
[2021-11-19 12:33] LABS: Insulin 12 uU/mL (2-29)
[2021-11-20 14:46] LABS: Calcium (PTHI) 9.2 mg/dL (8.6-10.2); PTHI 47 pg/mL (16-77)
[2021-11-22 05:56] LABS: Zinc 82 mcg/dL (60-130)
[2021-11-23 00:52] LABS: Vitamin A 26 mcg/dL (38-98)
[2021-11-24 12:46] LABS: Vitamin B1 25 nmol/L (8-30)
== END 2021-11-19 10:14 | disposition home or self-care (01) ==
LOC: HO.LAB 10:13
PROVIDERS: PCP Internal Medicine; Visit Provider Physician Assistant Surgical
DX: K92.1 Melena (principal); Z90.3 Acquired absence of stomach [part of]
CPT/HCPCS: 36415; 80053; 80061; 82306; 82607; 82728; 82746; 83036; 83525; 83540; 83970; 84425; 84443; 84590; 84630; 85025; 86140

== ENCOUNTER → 2021-12-20 15:08 | Outpatient (BNVA) | payer OTHER, SELFPAY | PROVIDERS: PCP Internal Medicine; Referring Provider Internal Medicine; Visit Provider Physician Assistant Surgical | DX: E66.3 Overweight (principal); Z68.25 Body mass index [BMI] 25.0-25.9, adult; Z98.84 Bariatric surgery status | CPT/HCPCS: 99212 ==

== ENCOUNTER → 2022-02-19 10:21 | Outpatient (BNVA) | payer OTHER, SELFPAY | PROVIDERS: PCP Internal Medicine; Visit Provider Physician Assistant Surgical | DX: E66.3 Overweight (principal); Z98.84 Bariatric surgery status; Z98.890 Other specified postprocedural states; Z87.19 Personal history of other diseases of the digestive system | CPT/HCPCS: 99212; Q3014 ==

== ENCOUNTER → 2022-06-04 08:29 | Outpatient (BNVA) | payer OTHER, SELFPAY | PROVIDERS: PCP Internal Medicine; Visit Provider Physician Assistant Surgical | DX: E66.3 Overweight (principal); Z98.84 Bariatric surgery status; Z68.26 Body mass index [BMI] 26.0-26.9, adult | CPT/HCPCS: 99212 ==

== ENCOUNTER 2022-07-03 07:18 | Outpatient (REF) | payer OTHER, SELFPAY ==
[2022-07-03 07:32] LABS: MANUAL DIFF FLAG NO
[2022-07-03 07:41] LABS: Basophils Percent Auto 0.7 % (0-2); Eosinophils Absolute Auto 0.2 X10*3/uL (0.0-0.4); Eosinophils Percent Auto 4.4 % (0-4); Hematocrit 35.2 % (37.0-47.0); Hemoglobin 11.6 g/dl (12.0-16.0); Imm Gran Abs Auto 0.01 X10*3/uL (0.00-0.03); Imm Gran Pct Auto 0.2 % (0.0-0.4); Lymphocytes Absolute Auto 1.8 X10*3/uL (1.2-4.9); Lymphocytes Percent Auto 42.7 % (20-40); Mean Corpuscular Hemoglobin 26.8 pg (27.0-33.0); Mean Corpuscular Volume 81.3 fL (80.0-98.0); Mean Platelet Volume 9.9 fL (9.4-12.3); Monocytes Absolute Auto 0.3 X10*3/uL (0.1-1.2); Neutrophils Absolute Auto 1.9 x10*3/uL (2.0-8.3); Platelet Count 304 X10*3/uL (160-400); Red Blood Count 4.33 X10*6/uL (4.20-5.50); Red Cell Distribution Width 13.2 % (11.0-16.0); White Blood Count 4.3 X10*3/uL (4.8-10.8)
[2022-07-03 07:52] LABS: Estimated Average Glucose 100 mg/dL; Hemoglobin A1c % 5.1 %
[2022-07-03 08:18] LABS: Alanine Aminotransferase 9 U/L (0-31); Albumin Level 4.2 g/dL (3.5-5.0); Alkaline Phosphatase 61 U/L (39-117); Anion Gap 12 (12-20); Aspartate Amino Transferase 14 U/L (5-31); Bilirubin Total 0.5 mg/dL (0.0-1.0); Blood Urea Nitrogen 10 mg/dL (9-16); Carbon Dioxide 27 mmol/L (22-29); Chloride 107 mmol/L (96-108); Cholesterol 209 mg/dL; Estimated Glomerular Filt Rate > 60; Glucose Random 87 mg/dL (60-115); HDL Cholesterol 73 mg/dL; Iron 57 mcg/dL (30-160); LDL Cholesterol Calculated 125 mg/dl; Percent Iron Saturation 17 % (15-50); Potassium 4.2 mmol/L (3.3-5.1); Sodium 142 mmol/L (135-145); Total Iron Binding Capacity 342 mcg/dL (228-428); Total Protein 7.2 g/dL (6.5-8.0); Triglycerides 56 mg/dL; Unsaturated Iron Binding 285 ug/dL
[2022-07-03 08:38] LABS: Ferritin 5 ng/mL (10-250); Folate 9.2 ng/mL (> or = 4.0); Insulin 4 uU/mL (2-29); TSH reflex Free T4 1.32 uIU/mL (0.32-4.0); Vitamin B12 894 pg/mL (200-900); Vitamin D 25-OH Total 28.9 ng/mL (>30)
[2022-07-07 15:29] LABS: Calcium (PTHI) 9.1 mg/dL (8.6-10.2); PTHI 45 pg/mL (16-77)
[2022-07-09 02:04] LABS: Zinc 82 mcg/dL (60-130)
[2022-07-10 10:38] LABS: Vitamin A 32 mcg/dL (38-98)
[2022-07-10 16:24] LABS: Vitamin B1 8 nmol/L (8-30)
== END 2022-07-03 07:19 | disposition home or self-care (01) ==
LOC: HO.LAB 07:18
PROVIDERS: PCP Internal Medicine; Visit Provider Physician Assistant Surgical
DX: K91.2 Postsurgical malabsorption, not elsewhere classified (principal); Z98.84 Bariatric surgery status; Z20.2 Contact with and (suspected) exposure to infections with a predominantly sexual mode of transmission
CPT/HCPCS: 36415; 80053; 80061; 82306; 82607; 82728; 82746; 83036; 83525; 83540; 83970; 84425; 84443; 84590; 84630; 85025; 86140

== ENCOUNTER → 2022-07-10 15:58 | Outpatient (BNVA) | payer OTHER, SELFPAY | PROVIDERS: PCP Internal Medicine; Visit Provider Physician Assistant Surgical | DX: E66.3 Overweight (principal); Z68.26 Body mass index [BMI] 26.0-26.9, adult; Z90.3 Acquired absence of stomach [part of] | CPT/HCPCS: 99212 ==

== ENCOUNTER → 2022-08-29 11:56 | Outpatient (BNVA) | payer OTHER, SELFPAY | PROVIDERS: PCP Internal Medicine; Visit Provider Physician Assistant Surgical | DX: E66.3 Overweight (principal); Z98.84 Bariatric surgery status; Z68.26 Body mass index [BMI] 26.0-26.9, adult | CPT/HCPCS: 99212 ==

== ENCOUNTER 2022-09-30 11:55 | Outpatient (AMB) | payer OTHER, SELFPAY ==
--- NOTE | 2022-09-30 11:34 | MHC.OFFVISWM ---
Intake VS Expanded 09/30/22 11:38 Height 5 ft 1 in Weight 139 lb BMI 26.3 Intake Visit Reasons: Telehealth PO LSG 05/17/20 Claim Specialist Required: Yes Allergies animal dander Allergy (Severe, Verified 08/29/22 12:03) Anaphylaxis Medication List - Last Reconciled 09/30/22 by ANIKET Britt cholecalciferol (vitamin D3) 25 mcg PO DAILY tamoxifen 20 mg PO DAILY vitamin A palmitate 10,000 units PO DAILY HPI HPI Comments History of Present Illness Details This?is a?42?yo female who is s/p LSG 05/17/2020. Presents for 2 year 4 month post op visit. Weight at last visit on 08/29/2022 was 140.4 pounds with a BMI of 26.5, weight today is 139 pounds, representing a 1.4 pound weight loss with a BMI today of 26.3.? Next week will start chemotherapy. Recently underwent breast procedure and is in a bit of pain. Had appt with RD but cancelled due to travel to [place]. Present meal plan includes: at least 60g protein per day combination of Soylent shakes (at breakfast) and small meals high in protein- will usually have meals, but if on the go will take a shake with her having improvement in appetite so she is eating 3x/day now Exercise routine includes: going to gym now; 30 minutes weight training; limited with chest or abdomen exercises for now per surgeon [facility] Medical History (Updated 02/18/21 @ 14:43 by Olivia Woods PA-C) Anxiety and depression Asthma Depression Fibromyalgia GERD (gastroesophageal reflux disease) Hiatal hernia Hx of allergic rhinitis Hx of chest pain Liver fibrosis Low back pain Morbid obesity Overweight PONV (postoperative nausea and vomiting) Sciatica of left side Seasonal allergies Vitamin D deficiency Surgical History (Updated 08/29/22 @ 12:07 by Dotty López CMA) H/O bilateral breast biopsy History of esophagogastroduodenoscopy (EGD) History of sleeve gastrectomy Hx of carpal tunnel repair Hx of laparoscopic gastric banding Hx of mastectomy Hx of tubal ligation Family History Mother Cancer Hypertension Arthritis Father Hypertension Diabetes Skin cancer Diverticulitis Brother Hypertension Daughter ADHD Son No problems noted. 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 primary ostomy care nurse to a significant other at home: Yes (17+18 year old children) Do you presently have visiting nurse or other home services: No Alcohol intake: never Patient Tobacco Use Status: Never used Tobacco Second Hand Smoke Exposure: No service: No Current occupational status: disabled Assessment & Plan Assessment & Plan (1) Overweight: Code(s): E66.3 - Overweight (2) S/P laparoscopic sleeve gastrectomy: Code(s): Z98.84 - Bariatric surgery status Plan Per pt request will order CBC to follow up H/H. If persistently low discussed starting an iron supplement as pt reports frequent bruising. Pt will continue on high protein meal plan for now and wants to follow up in 4-6 months. She will reach out to RD for meal plan assistance if she notices difficulty with weight gain between now and then especially once she starts tamoxifen. Patient is overweight and is not considered stable at this time. I spent a total of 30 minutes reviewing/updating records, examining the patient and counseling the patient on weight management as detailed above. Orders: Orders Complete Blood Count Auto Diff Today K91.2 - Postsurgical malabsorption, not elsewhere classified, Z90.3 - Acquired absence of stomach [part of] Telehealth Telehealth Location of provider rendering services: practice address Location of patient: address on file Patient Identification confirmed using: Name, : Yes Telehealth method: video Patient verbally consented to treatment: Yes Patient verbally consented to billing insurance company: Yes Patient informed of any privacy concerns related to visit: Yes Coding Level of Care Code Tele Est Pt Level 4 (25544) Diagnoses Overweight E66.3 S/P laparoscopic sleeve gastrectomy Z98.84
[2022-09-30 11:38] VITALS: BMI 26.3
== END 2022-09-30 11:56 | disposition home or self-care (01) ==
LOC: HO.HBS 11:56
PROVIDERS: PCP Internal Medicine; Visit Provider Physician Assistant Surgical
DX: E66.3 Overweight (principal); Z68.26 Body mass index [BMI] 26.0-26.9, adult; Z90.3 Acquired absence of stomach [part of]; Z98.84 Bariatric surgery status
CPT/HCPCS: 99214

== ENCOUNTER → 2022-09-30 11:55 | Outpatient (BNVA) | payer OTHER, SELFPAY | PROVIDERS: PCP Internal Medicine; Visit Provider Physician Assistant Surgical | DX: E66.3 Overweight (principal); K91.2 Postsurgical malabsorption, not elsewhere classified; Z68.26 Body mass index [BMI] 26.0-26.9, adult; Z90.3 Acquired absence of stomach [part of]; Z98.84 Bariatric surgery status | CPT/HCPCS: Q3014 ==

== ENCOUNTER 2022-10-02 08:14 | Outpatient (REF) | payer OTHER, SELFPAY ==
[2022-10-02 08:31] LABS: MANUAL DIFF FLAG NO
[2022-10-02 09:12] LABS: Basophils Absolute Auto 0.1 X10*3/uL (0.0-0.2); Basophils Percent Auto 1.4 % (0-2); Eosinophils Absolute Auto 0.1 X10*3/uL (0.0-0.4); Eosinophils Percent Auto 2.3 % (0-4); Hematocrit 31.7 % (37.0-47.0); Imm Gran Abs Auto 0.01 X10*3/uL (0.00-0.03); Imm Gran Pct Auto 0.2 % (0.0-0.4); Lymphocytes Absolute Auto 1.9 X10*3/uL (1.2-4.9); Mean Corpuscular HGB Conc 31.5 g/dl (31.0-35.0); Mean Corpuscular Hemoglobin 24.7 pg (27.0-33.0); Mean Corpuscular Volume 78.3 fL (80.0-98.0); Mean Platelet Volume 10.5 fL (9.4-12.3); Monocytes Absolute Auto 0.4 X10*3/uL (0.1-1.2); Monocytes Percent Auto 7.5 % (2-11); Neutrophils Absolute Auto 2.7 x10*3/uL (2.0-8.3); Neutrophils Percent Auto 52.6 % (45-73); Platelet Count 325 X10*3/uL (160-400); Red Blood Count 4.05 X10*6/uL (4.20-5.50); Red Cell Distribution Width 13.8 % (11.0-16.0); White Blood Count 5.2 X10*3/uL (4.8-10.8)
== END 2022-10-02 08:15 | disposition home or self-care (01) ==
LOC: HO.LAB 08:14
PROVIDERS: PCP Internal Medicine; Visit Provider Physician Assistant Surgical
DX: K91.2 Postsurgical malabsorption, not elsewhere classified (principal); Z90.3 Acquired absence of stomach [part of]
CPT/HCPCS: 36415; 85025

== ENCOUNTER 2023-02-19 11:18 | Outpatient (AMB) | payer OTHER, SELFPAY ==
--- NOTE | 2023-02-19 10:50 | A.OFFVIS_ITS ---
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 Presents for 2 year 9 month month post op visit. Weight at last visit on 09/30/2022 was 139 pounds with a BMI of 26.3, weight today is 138.4 pounds, representing a 0.6 pound weight loss with a BMI today of 26.1.? No complaints of nausea, emesis, abdominal pain or reflux, or constipation. Was started on iron after last visit. Had breast reconstruction 3 weeks ago, which seems to have included a flap as pt reports that some tissue had to be taken from her lower abdomen. Never started tamoxifen. Reports recent Hgb 8.9 while hospitalized, reports she started iron supplement that we had ordered for her but had to stop it for a while around the time of surgery per surgeon's instructions. Present meal plan includes: at least 60g protein per day combination of Soylent shakes (at breakfast) and small meals high in protein- will usually have meals, but if on the go will take a shake with her had a lot of nausea after surgery, but trying to get back to eating her regular meal plan now that she feels better Exercise routine includes: typically goes to gym; 30 minutes weight training but restricted in activity due to recent surgery, cannot do weight training/core currently [facility] Medical History (Updated 02/18/21 @ 14:43 by BARBARA SehltonC) Overweight Liver fibrosis Hx of allergic rhinitis Seasonal allergies Sciatica of left side Low back pain Hiatal hernia Anxiety and depression Hx of chest pain PONV (postoperative nausea and vomiting) Vitamin D deficiency GERD (gastroesophageal reflux disease) Fibromyalgia Asthma Depression Morbid obesity Surgical History (Updated 06/16/23 @ 12:07 by Dotty López CMA) Hx of mastectomy Hx of laparoscopic gastric banding History of esophagogastroduodenoscopy (EGD) History of sleeve gastrectomy H/O bilateral breast biopsy Hx of tubal ligation Hx of carpal tunnel repair Family History Mother Cancer Hypertension Arthritis Father Hypertension Diabetes Skin cancer Diverticulitis Brother Hypertension Daughter ADHD Son No problems noted. 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 Has resumed iron after surgery, will plan to recheck levels at next visit to ensure improvement in anemia. RTC in May for annual. Patient is overweight and is not considered stable at this time. I spent a total of 30 minutes reviewing/updating records, examining the patient and counseling the patient on weight management as detailed above. Telehealth Telehealth Location of provider rendering services: practice address Location of patient: address on file Patient Identification confirmed using: Name, : Yes Telehealth method: voice only Patient verbally consented to treatment: Yes Patient verbally consented to billing insurance company: Yes Patient informed of any privacy concerns related to visit: Yes Minutes spent on Phone/Video with Pt.: 20 Coding Level of Care Code Tele Est Pt Level 4 (16918) Diagnoses Overweight E66.3 S/P laparoscopic sleeve gastrectomy Z98.84
[2023-02-19 11:18] VITALS: BMI 26.1
== END 2023-02-19 11:27 | disposition home or self-care (01) ==
LOC: HO.HBS 11:18
PROVIDERS: PCP Internal Medicine; Visit Provider Physician Assistant Surgical
DX: E66.3 Overweight (principal); Z68.26 Body mass index [BMI] 26.0-26.9, adult; Z90.3 Acquired absence of stomach [part of]; Z98.84 Bariatric surgery status
CPT/HCPCS: 99443

== ENCOUNTER → 2023-02-19 11:18 | Outpatient (BNVA) | payer OTHER, SELFPAY | PROVIDERS: PCP Internal Medicine; Visit Provider Physician Assistant Surgical ==

== ENCOUNTER 2023-03-06 10:14 | Outpatient (REF) | payer OTHER, SELFPAY | END 2023-03-06 10:15 | disposition home or self-care (01) | LOC: HO.XRAY 10:14 | PROVIDERS: PCP Internal Medicine; Visit Provider Internal Medicine | DX: M25.562 Pain in left knee (principal); G89.29 Other chronic pain | CPT/HCPCS: 73560 ==

== ENCOUNTER 2023-05-22 10:37 | Emergency (ER) | payer OTHER, SELFPAY ==
--- NOTE | ~2023-05-22 | CT_ITS ---
EXAMINATION: CT ABDOMEN AND PELVIS WITHOUT CONTRAST CLINICAL INFORMATION: Abdominal pain COMPARISON: None available. TECHNIQUE: Multidetector volumetric imaging was performed from the superior aspect of the liver through the pubic symphysis. Sagittal and coronal reformatted images were obtained on the technologist's workstation. This CT examination was performed using dose optimization techniques as appropriate, variously including the following: *Automated exposure control *Adjustment of mA and/or kV according to patient size (this includes techniques or standardized protocols for targeted exams where dose is matched to indication/reason for exam; i.e. extremities or head) *Use of iterative reconstruction technique DLP: 468 mGy-cm FINDINGS: LUNG BASES: The visualized lung bases are unremarkable. LIVER, GALLBLADDER, AND BILIARY TREE: The liver is normal in size, shape, and attenuation. No focal hepatic lesion or biliary ductal dilatation is present. The gallbladder is unremarkable with no evidence of radiopaque gallstones, gallbladder wall thickening, or obvious pericholecystic inflammatory changes. PANCREAS: Unremarkable. SPLEEN: Unremarkable. ADRENAL GLANDS: Unremarkable. KIDNEYS AND URETERS: The kidneys are normal in size, shape, and attenuation. No hydronephrosis, hydroureter, or calculi seen. No perinephric stranding. BLADDER: Unremarkable. GASTROINTESTINAL TRACT: There is scattered stool and gas seen in colon without distention. The small bowel loops are normal caliber. Appendix is not seen. There is gastric reduction surgical changes along the greater curvature. No free air or free fluid seen. ABDOMINAL WALL: No significant hernia is appreciated. LYMPH NODES: Normal. VASCULAR: Unremarkable. PELVIC VISCERA: Unremarkable. OSSEOUS STRUCTURES: There is no aggressive lytic or sclerotic process seen. CT/CT abdomen pelvis wo IV con IMPRESSION: 1. No acute intra-abdominal process seen. 2. Mild constipation. Fleischner guidelines were followed.
[2023-05-22 10:46] VITALS: BP 157/76; PULSE 72; RESP 17; TEMP 36.9; O2SAT 100; BMI 27.0
--- NOTE | 2023-05-22 11:11 | ED_ITS ---
HPI - Abdominal Pain General Chief Complaint: Abdominal Pain Stated Complaint: Lower abd pain Time Seen by Provider: 05/22/23 11:07 Source: patient Mode of arrival: ambulatory Limitations: no limitations History of Present Illness HPI narrative: 42 year old female hx of asthma, breast cancer s/o mastectomy, chronic constipation, fibromyalgia, depression, obesity presenting to the emergency department with complaints of lower abdominal discomfort for the past 4 days. Patient reports abdominal pain is a crampy sensation, intermittent in nature. She reports that this pain is worse at night. Reports that her last menstrual period was April 08, she is unsure if she is she states previous pregnancies have never showed a positive test on urine. She also reports associated nausea, fatigue, malaise. Denies chest pain, shortness of breath, hematuria, flank pain, headache, vision changes, dizziness, fevers, chills, changes in bowel habits. Related Data Previous Rx's Medication Instructions Recorded cholecalciferol (vitamin D3) 25 25 mcg PO DAILY #30 tabs 06/04/22 mcg (1,000 unit) chewable tablet iron,carbonyl 65 mg-vitamin C 125 1 tab PO BEDTIME #90 tabs 10/02/22 mg tablet,delayed release (Vitron-C) vitamin A 3,000 mcg (10,000 unit) 1 cap PO DAILY #90 caps 12/18/22 capsule docusate sodium 100 mg capsule 100 mg PO BID #20 caps 05/22/23 (Colace) ondansetron 4 mg disintegrating 4 mg PO Q6H PRN nausea and 05/22/23 tablet vomiting #14 tabs polyethylene glycol 3350 17 17 g PO BID #238 grams 05/22/23 gram/dose oral powder (Miralax) sennosides 8.6 mg tablet (senna) 8.6 mg PO BEDTIME #14 tabs 05/22/23 Allergies Allergy/AdvReac Type Severity Reaction Status Date / Time animal dander Allergy Severe Anaphylaxis Verified 08/29/22 12:03 Review of Systems Review of Systems Yes all other systems are reviewed and are negative PMFSH Past Medical History Attestation statement: The following information was validated with the patient. Source: old records reviewed and nursing notes reviewed Medical History Overweight Liver fibrosis Hx of allergic rhinitis Seasonal allergies Sciatica of left side Low back pain Hiatal hernia Anxiety and depression Hx of chest pain PONV (postoperative nausea and vomiting) Vitamin D deficiency GERD (gastroesophageal reflux disease) Fibromyalgia Asthma Depression Morbid obesity Surgical History Hx of mastectomy Hx of laparoscopic gastric banding History of esophagogastroduodenoscopy (EGD) History of sleeve gastrectomy H/O bilateral breast biopsy Hx of tubal ligation Hx of carpal tunnel repair Family History Family History Mother Cancer Hypertension Arthritis Father Hypertension Diabetes Skin cancer Diverticulitis Brother Hypertension Daughter ADHD Son No problems noted. Paternal Uncle Colon cancer Social History Social History Are you a primary continuum of care manager to a significant other at home: Yes (17+18 year old children) Do you presently have visiting nurse or other home services: No Alcohol intake: never Comment: fell on ice 04/18/2020 fell on ice no injury Patient Tobacco Use Status: Never used Tobacco Smoked in Last 30 Days: No Second Hand Smoke Exposure: No Use of substances other than those prescribed or required for medical reasons: No Advance Directives: No Advance Directives Information Provided: Yes Patient : Yes service: No Current occupational status: disabled Physical Exam ED Vital Signs: Vital Signs - 24 hr 05/22/23 10:46 05/22/23 11:54 Temperature 98.4 F 98.8 F Pulse Rate 72 64 Respiratory Rate 17 18 Blood Pressure 157/76 H 141/71 H Pulse Oximetry 100 98 Oxygen Delivery Method Room Air Room Air BMI result Body Mass Index 27.0 vss Appearance: Alert.? Oriented X3.? No acute distress.? Head: Normocephalic, atraumatic, no step-offs or deformities Eyes: Pupils equal, round and reactive to light.? CVS: Normal heart rate and rhythm.? Pulses normal.? Respiratory: No respiratory distress.? Breath sounds normal.? Abdomen: Soft and + lower abd tenderness throughout. Normal BS throughout..? Skin: Skin warm and dry.? Normal skin color.? Normal skin turgor.? Extremities: No lower extremity edema.? No calf ttp. 5/5 strength to bilateral upper and lower extremities Back: No midline tenderness, no C-spine tenderness, full range of motion, no CVA tenderness bilaterally Neuro: Oriented X 3.? No motor deficit.? No sensory deficit. CN 2-12 intact Course Reevaluation(s) Reevaluation #1: CBC within normal limits. Chemistry unremarkable. Beta hCG negative. Patient's menses maybe late secondary to premenopausal state. Or menorrhagia. CT abdomen pelvis no acute intra-abdominal process seen. Mild constipation. Patient's symptoms likely secondary to constipation. Colace, senna and MiraLax ordered Educated patient on diagnosis and treatment plan, answered all question, patient verbalizes understanding. At this time patient will be discharged home, advised to return with new or worsening symptoms. Educated on worrisome signs and symptoms and when to return. At this time I feel comfortable discharge home. Time: 13:53 Reevaluation #2: At time of discharge patient tolerating p.o. and eating [place] fried chicken. Time: 13:53 Medical Decision Making Medical Decision Making [facility] Narrative: 42 year old female presents w/ lower abd pain X 4 days PE lower abd discomfort throughout. Will rule out vs uti vs cystitis vs cramping vs functional constipation. Less likely ovarian cyst or torsion. Unlikely obstruction, stone, acute abdomen, pylo, appendiciits, diverticulitis, cholecysitis. Will rule out metabolic derangements. Plan- labs, urine, imaging Differential Diagnosis Differential Diagnoses: The differential diagnosis associated with the presentation includes Will rule out vs uti vs cystitis vs cramping vs functional constipation. Less likely ovarian cyst or torsion. Unlikely obstruction, stone, acute abdomen, pylo, appendiciits, diverticulitis, cholecysitis. Will rule out metabolic derangements. Admission/Observation Consideration of admission/observation: Escalation of care including admission/observation considered Lab Data [facility] Lab Attestation statement: I reviewed the patient's lab results. 05/22/23 11:56 05/22/23 11:56 Labs: Lab Results 05/22/23 Range/Units 11:56 WBC 6.7 (4.8-10.8) X10*3/uL RBC 4.68 (4.20-5.50) X10*6/uL Hgb 12.5 D (12.0-16.0) g/dl Hct 37.5 (37.0-47.0) % MCV 80.1 (80.0-98.0) fL MCH 26.7 L (27.0-33.0) pg MCHC 33.3 (31.0-35.0) g/dl RDW 13.6 (11.0-16.0) % Plt Count 292 (160-400) X10*3/uL MPV 9.4 (9.4-12.3) fL Immature Gran % (Auto) 0.1 (0.0-0.4) % Neut % (Auto) 47.2 (45-73) % Lymph % (Auto) 41.8 H (20-40) % [place] % (Auto) 7.9 (2-11) % Eos % (Auto) 2.4 (0-4) % Baso % (Auto) 0.6 (0-2) % Lymph # (Auto) 2.8 (1.2-4.9) X10*3/uL [place] # (Auto) 0.5 (0.1-1.2) X10*3/uL Eos # (Auto) 0.2 (0.0-0.4) X10*3/uL Baso # (Auto) 0.0 (0.0-0.2) X10*3/uL Abs Immat Gran (auto) 0.01 (0.00-0.03) X10*3/uL Absolute Neuts (auto) 3.2 (2.0-8.3) x10*3/uL Absolute Nucleated RBC 0.000 (0.0-0.012) X10*3/uL Nucleated RBC % (auto) 0.0 (0.0-0.2) /100WBC Sodium 139 (135-145) mmol/L Potassium 4.8 (3.3-5.1) mmol/L Chloride 106 (96-108) mmol/L Carbon Dioxide 28 (22-29) mmol/L Anion Gap 10 L (12-20) BUN 9 (9-16) mg/dL Creatinine 0.73 (0.5-1.4) mg/dL Estim Creat Clear Calc 87.4 Estimated GFR > 60 Random Glucose 88 (60-115) mg/dL Calcium 9.2 (8.4-10.2) mg/dL Magnesium 2.3 (1.6-2.6) mg/dL Total Bilirubin 0.3 (0.0-1.0) mg/dL AST 18 (5-31) U/L ALT 12 (0-31) U/L Alkaline Phosphatase 70 (39-117) U/L Total Protein 7.9 (6.5-8.0) g/dL Albumin 4.3 (3.5-5.0) g/dL Lipase 35 (8-78) U/L Beta HCG, Quant < 2 mIU/mL Independent Interpretation I performed an independent interpretation of an: CT Scan Radiology Impression Discussion of test interpretation with radiology: I have reviewed the radiologist's reading. Independent Historian Clinical information obtained from an independent historian. History obtained from or confirmed by: Other (CARE TECHNICIAN ) External Record Review External record reviewed: Inpatient record, Office record, Outpatient record, Prior outpatient labs, Prior outpatient radiology, Primary care record and Outside ED record Chronic Conditions Patient?s care impacted by: Other (Breast cancer, asthma, obesity, GERD, fibromyalgia, depression) Discharge Plan Discharge Clinical Impression: Constipation, Nausea, Abdominal pain Patient Disposition: Home, Self-Care Instructions: Constipation (ED), Constipation (DC), High Fiber Diet (ED), Acute Nausea and Vomiting (ED), Abdominal Pain (ED) Additional Instructions: Take your medications as prescribed. If you were prescribed antibiotics today, it is important that you take your medication to their entirety, do not skip any doses, do not finish them early. Follow-up with your primary care provider this week. Return to the emergency department with new or worsening symptoms. Such as fevers, chills, chest pain, shortness of breath, nausea, vomiting, dizziness, headache, vision changes, lethargy In case of emergency call 911 Prescriptions: New sennosides [senna] 8.6 mg tablet 8.6 mg PO BEDTIME Qty: 14 0RF docusate sodium [Colace] 100 mg capsule 100 mg PO BID Qty: 20 0RF polyethylene glycol 3350 [Miralax] 17 gram/dose powder 17 g PO BID Qty: 238 0RF ondansetron 4 mg tablet,disintegrating 4 mg PO Q6H PRN (Reason: nausea and vomiting) Qty: 14 0RF No Action Vitron-C 65 mg iron- 125 mg tablet,delayed release (DR/EC) 1 tab PO BEDTIME Qty: 90 3RF vitamin A 3,000 mcg (10,000 unit) capsule 1 cap PO DAILY Qty: 90 3RF cholecalciferol (vitamin D3) 25 mcg (1,000 unit) tablet,chewable 25 mcg PO DAILY Qty: 30 11RF Referrals: Cristal Clay MD [Primary Care Provider] - 2 days Stand Alone Forms: Work/School Release
[2023-05-22 11:54] VITALS: BP 141/71; PULSE 64; RESP 18; TEMP 37.1; O2SAT 98
[2023-05-22 11:59] LABS: MANUAL DIFF FLAG NO
[2023-05-22 12:03] LABS: Basophils Percent Auto 0.6 % (0-2); Eosinophils Absolute Auto 0.2 X10*3/uL (0.0-0.4); Eosinophils Percent Auto 2.4 % (0-4); Hematocrit 37.5 % (37.0-47.0); Hemoglobin 12.5 g/dl (12.0-16.0); Imm Gran Abs Auto 0.01 X10*3/uL (0.00-0.03); Imm Gran Pct Auto 0.1 % (0.0-0.4); Lymphocytes Absolute Auto 2.8 X10*3/uL (1.2-4.9); Lymphocytes Percent Auto 41.8 % (20-40); Mean Corpuscular HGB Conc 33.3 g/dl (31.0-35.0); Mean Corpuscular Hemoglobin 26.7 pg (27.0-33.0); Mean Corpuscular Volume 80.1 fL (80.0-98.0); Mean Platelet Volume 9.4 fL (9.4-12.3); Monocytes Absolute Auto 0.5 X10*3/uL (0.1-1.2); Monocytes Percent Auto 7.9 % (2-11); Neutrophils Absolute Auto 3.2 x10*3/uL (2.0-8.3); Neutrophils Percent Auto 47.2 % (45-73); Platelet Count 292 X10*3/uL (160-400); Red Blood Count 4.68 X10*6/uL (4.20-5.50); Red Cell Distribution Width 13.6 % (11.0-16.0); White Blood Count 6.7 X10*3/uL (4.8-10.8)
[2023-05-22 12:27] LABS: Alanine Aminotransferase 12 U/L (0-31); Albumin Level 4.3 g/dL (3.5-5.0); Alkaline Phosphatase 70 U/L (39-117); Anion Gap 10 (12-20); Aspartate Amino Transferase 18 U/L (5-31); Bilirubin Total 0.3 mg/dL (0.0-1.0); Blood Urea Nitrogen 9 mg/dL (9-16); Calcium 9.2 mg/dL (8.4-10.2); Carbon Dioxide 28 mmol/L (22-29); Chloride 106 mmol/L (96-108); Creatinine Clr Calc Pharmacy 87.4; Estimated Glomerular Filt Rate > 60; Glucose Random 88 mg/dL (60-115); HCG Quantitative < 2 mIU/mL; Lipase 35 U/L (8-78); Magnesium 2.3 mg/dL (1.6-2.6); Potassium 4.8 mmol/L (3.3-5.1); Sodium 139 mmol/L (135-145); Total Protein 7.9 g/dL (6.5-8.0)
== END 2023-05-22 14:55 | disposition home or self-care (01) ==
PROVIDERS: Physician Assistant; Emergency Provider Emergency Medicine; PCP Internal Medicine
DX: R10.30 Lower abdominal pain, unspecified (principal); K59.00 Constipation, unspecified; R11.0 Nausea
CPT/HCPCS: 36415; 74176; 80053; 83690; 83735; 84702; 85025; 99284

== ENCOUNTER 2023-05-26 09:19 | Outpatient (AMB) | payer OTHER, SELFPAY ==
--- NOTE | 2023-05-26 09:21 | MHC.OFFVISWM ---
Intake VS Expanded 05/26/23 09:31 BP 131/74 Blood Pressure Location Rt brachial Blood Pressure Position Sitting Pulse 72 Pulse Source Pulse Oximeter Temp 97.0 F Temperature Source Tympanic Pulse Oximetry 99 Oxygen Delivery Method Room Air Height 5 ft 0.5 in Weight 140 lb BMI 26.9 Body Fat % 30.4 Body Fat Mass 42.6 Fat Free Mass 97.4 Visceral Fat Rating 5.0 Body Water % 49.6 Body Water Mass 69.4 Muscle Mass/Score 92.6 Basal Metabolic Rate/Score 1,327 Intake Visit Reasons: (OV) PO LSG 05/17/20 Allergies animal dander Allergy (Severe, Verified 05/26/23 09:22) Anaphylaxis Medication List - Last Reconciled 05/26/23 by ANIKET Britt cholecalciferol (vitamin D3) 25 mcg PO DAILY docusate sodium (Colace) 100 mg PO BID iron,carbonyl-vitamin C 65 mg iron- 125 mg (Vitron-C) 1 tab PO BEDTIME polyethylene glycol 3350 (Miralax) 17 grams PO BID sennosides (senna) 8.6 mg PO BEDTIME vitamin A 1 cap PO DAILY HPI HPI Comments History of Present Illness Details This?is a?42?yo female who is s/p LSG 05/17/2020. Presents for 3 year post op visit. Weight stable since last visit 3 months ago.? No complaints of nausea, emesis, abdominal pain or reflux, or constipation. Had to get a shoulder MRI recently for pain; thinks she has a cyst. Was recently in ED for lower abdominal pain, thinks it may have been related to scar tissue. Present meal plan includes: at least 60g protein per day combination of Soylent shakes (at breakfast) and small meals high in protein- will usually have meals, but if on the go will take a shake with her Exercise routine includes: typically goes to gym; 30 minutes weight training but has not been exercising as much recently, did PT for knee, wants to start a boot camp class [facility] Medical History Overweight Liver fibrosis Hx of allergic rhinitis Seasonal allergies Sciatica of left side Low back pain Hiatal hernia Anxiety and depression Hx of chest pain PONV (postoperative nausea and vomiting) Vitamin D deficiency GERD (gastroesophageal reflux disease) Fibromyalgia Asthma Depression Morbid obesity Surgical History Hx of mastectomy Hx of laparoscopic gastric banding History of esophagogastroduodenoscopy (EGD) History of sleeve gastrectomy H/O bilateral breast biopsy Hx of tubal ligation Hx of carpal tunnel repair Family History Mother Cancer Hypertension Arthritis Father Hypertension Diabetes Skin cancer Diverticulitis Brother Hypertension Daughter ADHD Son No problems noted. 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 primary college and career counselor to a significant other at home: Yes (17+18 year old children) Do you presently have visiting nurse or other home services: No Alcohol intake: never Comment: fell on ice 04/18/2020 fell on ice no injury Patient Tobacco Use Status: Never used Tobacco Second Hand Smoke Exposure: No service: No Current occupational status: disabled Physical Exam Vital Signs: Last Vital Signs Temp 97.0 F 05/26/23 09:31 Pulse 72 05/26/23 09:31 BP 131/74 05/26/23 09:31 Pulse Ox 99 05/26/23 09:31 Oxygen Delivery Method Room Air 05/26/23 09:31 BMI result Body Mass Index 26.9 Assessment & Plan Assessment & Plan (1) Overweight: Code(s): E66.3 - Overweight (2) S/P laparoscopic sleeve gastrectomy: Code(s): Z98.84 - Bariatric surgery status Plan Pt acknowledges that she is lacking in exercise and plans to start a boot camp class. Based on labs from ED anemia has improved. Will recheck labs, vitamin levels. Per pt preference RTC 3 months. Patient is overweight and is not considered stable at this time. I spent a total of 30 minutes reviewing/updating records, examining the patient and counseling the patient on weight management as detailed above. Medications: New simethicone (Gas Relief (simethicone)) 80 mg PO BID-QID PRN 90 tabs 3RF abdominal distention Coding Level of Care Code Est Pt Level 4 (46174) Diagnoses Overweight E66.3 S/P laparoscopic sleeve gastrectomy Z98.84
[2023-05-26 09:31] VITALS: BP 131/74; PULSE 72; TEMP 36.1; O2SAT 99; BMI 26.9
== END 2023-05-26 09:52 | disposition home or self-care (01) ==
PROVIDERS: PCP Internal Medicine; Visit Provider Physician Assistant Surgical
DX: E66.3 Overweight (principal); Z98.84 Bariatric surgery status
CPT/HCPCS: 99214

== ENCOUNTER → 2023-05-26 09:19 | Outpatient (BNVA) | payer OTHER, SELFPAY | PROVIDERS: PCP Internal Medicine; Visit Provider Physician Assistant Surgical | DX: E66.3 Overweight (principal); Z98.84 Bariatric surgery status; Z68.26 Body mass index [BMI] 26.0-26.9, adult | CPT/HCPCS: 99212 ==

== ENCOUNTER 2023-09-30 06:23 | Outpatient (REF) | payer OTHER, SELFPAY ==
[2023-09-30 06:36] LABS: MANUAL DIFF FLAG NO
[2023-09-30 08:58] LABS: Basophils Absolute Auto 0.1 X10*3/uL (0.0-0.2); Basophils Percent Auto 1.1 % (0-2); Eosinophils Absolute Auto 0.2 X10*3/uL (0.0-0.4); Hematocrit 37.6 % (37.0-47.0); Hemoglobin 12.4 g/dl (12.0-16.0); Imm Gran Abs Auto 0.01 X10*3/uL (0.00-0.03); Imm Gran Pct Auto 0.2 % (0.0-0.4); Lymphocytes Absolute Auto 2.1 X10*3/uL (1.2-4.9); Mean Corpuscular Hemoglobin 27.7 pg (27.0-33.0); Mean Corpuscular Volume 84.1 fL (80.0-98.0); Mean Platelet Volume 10.1 fL (9.4-12.3); Monocytes Absolute Auto 0.3 X10*3/uL (0.1-1.2); Monocytes Percent Auto 6.5 % (2-11); Neutrophils Absolute Auto 2.1 x10*3/uL (2.0-8.3); Neutrophils Percent Auto 43.2 % (45-73); Platelet Count 294 X10*3/uL (160-400); Red Blood Count 4.47 X10*6/uL (4.20-5.50); Red Cell Distribution Width 12.7 % (11.0-16.0); White Blood Count 4.8 X10*3/uL (4.8-10.8)
[2023-09-30 09:28] LABS: Anion Gap 11 (12-20)
[2023-09-30 09:36] LABS: Blood Urea Nitrogen 9 mg/dL (9-16); C Reactive Protein 0.15 mg/dL (< or = 0.50); Calcium 9.7 mg/dL (8.4-10.2); Carbon Dioxide 30 mmol/L (22-29); Chloride 106 mmol/L (96-108); Cholesterol 210 mg/dL (<200); Estimated Glomerular Filt Rate > 60; Glucose Random 85 mg/dL (60-115); HDL Cholesterol 78 mg/dL (>40); Iron 90 mcg/dL (30-160); LDL Cholesterol Calculated 117 mg/dL (<100); Percent Iron Saturation 32 % (15-50); Potassium 4.1 mmol/L (3.3-5.1); Sodium 143 mmol/L (135-145); Total Iron Binding Capacity 284 mcg/dL (228-428); Triglycerides 78 mg/dL (<150); Unsaturated Iron Binding 194 ug/dL
[2023-09-30 09:58] LABS: Ferritin 35 ng/mL (10-250); TSH reflex Free T4 1.41 uIU/mL (0.32-4.0); Vitamin D 25-OH Total 29.2 ng/mL (>30)
[2023-09-30 12:31] LABS: Estimated Average Glucose 100 mg/dL; Hemoglobin A1c % 5.1 % (<6.0)
[2023-09-30 13:38] LABS: Folate 5.9 ng/mL (> or = 4.0); Vitamin B12 834 pg/mL (200-900)
[2023-09-30 14:20] LABS: Insulin 5 uU/mL (2-29)
[2023-10-03 17:07] LABS: Zinc 67 mcg/dL (60-130)
[2023-10-05 05:38] LABS: Vitamin B1 8 nmol/L (8-30)
[2023-10-05 09:57] LABS: Vitamin A 50 mcg/dL (38-98)
== END 2023-09-30 06:24 | disposition home or self-care (01) ==
LOC: HO.LAB 06:23
PROVIDERS: PCP Internal Medicine; Visit Provider Physician Assistant Surgical
DX: E66.3 Overweight (principal); Z68.27 Body mass index [BMI] 27.0-27.9, adult; Z98.84 Bariatric surgery status; E50.9 Vitamin A deficiency, unspecified; K91.2 Postsurgical malabsorption, not elsewhere classified; E55.9 Vitamin D deficiency, unspecified; Z90.3 Acquired absence of stomach [part of]
CPT/HCPCS: 36415; 80048; 80061; 82306; 82607; 82728; 82746; 83036; 83525; 83540; 84425; 84443; 84590; 84630; 85025; 86140; 99212

== ENCOUNTER 2023-09-30 13:18 | Outpatient (AMB) | payer OTHER, SELFPAY ==
--- NOTE | 2023-09-30 13:21 | A.OFFVIS_ITS ---
VS Expanded 09/30/23 13:30 BP 142/93 H Blood Pressure Location Rt brachial Blood Pressure Position Sitting Pulse 72 Pulse Source Pulse Oximeter Temp 97.6 F Temperature Source Temporal Artery Scan Pulse Oximetry 99 Oxygen Delivery Method Room Air Height 5 ft 0.5 in Weight 142 lb BMI 27.3 Body Fat % 30.0 Body Fat Mass 42.6 Fat Free Mass 99.4 Visceral Fat Rating 5.0 Body Water % 50.0 Body Water Mass 71.0 Muscle Mass/Score 94.4 Basal Metabolic Rate/Score 1,349 Intake Visit Reasons: OV PO LSG 05/17/20 Allergies animal dander Allergy (Severe, Verified 09/30/23 13:22) Anaphylaxis Medication List - Last Reconciled 09/30/23 by ANIKET Britt cholecalciferol (vitamin D3) 50 mcg PO DAILY iron,carbonyl-vitamin C 65 mg iron- 125 mg (Vitron-C) 1 tab PO BEDTIME levocetirizine (24HR Allergy Relief) 5 mg PO DAILY vitamin A 1 cap PO DAILY HPI Comments Details: This?is a?43?yo female who is s/p LSG 05/17/2020. Weight gain of 2lbs since last OV in May 2023. No complaints of nausea, emesis, abdominal pain or reflux, or constipation. Pt reports a rash of hands and legs, going on for about 2 months. Present meal plan includes: at least 60g protein per day combination of Soylent shakes (at breakfast) and small meals high in protein- will usually have meals, but if on the go will take a shake with her pt reports she had a stressful few weeks, wasn't eating much but has done better the past week Exercise routine includes: restarted gym 2 weeks ago after weight went up to 145lbs, doing more cardio PFSH Medical History Overweight Liver fibrosis Hx of allergic rhinitis Seasonal allergies Sciatica of left side Low back pain Hiatal hernia Anxiety and depression Hx of chest pain PONV (postoperative nausea and vomiting) Vitamin D deficiency GERD (gastroesophageal reflux disease) Fibromyalgia Asthma Depression Morbid obesity Surgical History Hx of mastectomy Hx of laparoscopic gastric banding History of esophagogastroduodenoscopy (EGD) History of sleeve gastrectomy H/O bilateral breast biopsy Hx of tubal ligation Hx of carpal tunnel repair Family History Mother Cancer Hypertension Arthritis Father Hypertension Diabetes Skin cancer Diverticulitis Brother Hypertension Daughter ADHD Son No problems noted. 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 old children) Do you presently have visiting nurse or other home services: No Alcohol intake: never Comment: fell on ice 04/18/2020 fell on ice no injury Patient Tobacco Use Status: Never used Tobacco Second Hand Smoke Exposure: No service: No Current occupational status: disabled Physical Exam Vital Signs: Last Vital Signs Temp 97.6 F 09/30/23 13:30 Pulse 72 09/30/23 13:30 BP 142/93 H 09/30/23 13:30 Pulse Ox 99 09/30/23 13:30 Oxygen Delivery Method Room Air 09/30/23 13:30 BMI result Body Mass Index 27.3 Assessment & Plan Assessment & Plan (1) Overweight: Code(s): E66.3 - Overweight Category: Medical (2) S/P laparoscopic sleeve gastrectomy: Code(s): Z98.84 - Bariatric surgery status Category: Surgical Plan Labs reviewed, vit D supplement increased, vit A/B1/zinc pending. Pt is getting back on track with high protein meal plan and exercise. Will discuss rash with PCP. RTC 3-4 months. I spent a total of 30 minutes reviewing/updating records, examining the patient and counseling the patient on weight management as detailed above. Medications: New cholecalciferol (vitamin D3) 50 mcg PO DAILY 90 caps 3RF Discontinued cholecalciferol (vitamin D3) Discontinued Reason: Doctor's Order 25 mcg PO DAILY 90 tabs 3RF
[2023-09-30 13:30] VITALS: BP 142/93; PULSE 72; TEMP 36.4; O2SAT 99; BMI 27.3
== END 2023-09-30 14:04 | disposition home or self-care (01) ==
PROVIDERS: PCP Internal Medicine; Visit Provider Physician Assistant Surgical
DX: E66.3 Overweight (principal); Z98.84 Bariatric surgery status
CPT/HCPCS: 99214

== ENCOUNTER 2023-12-24 18:00 | Emergency (ER) | payer OTHER, SELFPAY ==
[2023-12-24 18:18] VITALS: BP 141/68; PULSE 70; RESP 20; TEMP 36.4; O2SAT 100; BMI 27.2
--- NOTE | 2023-12-24 18:18 | ED_ITS ---
HPI - General Adult General Chief complaint: Weakness Stated complaint: problems w/anemia/feels weak Time Seen by Provider: 12/24/23 22:51 Source: patient Limitations: no limitations and language barrier History of Present Illness ED Provider: Candace Yin PA-C HPI narrative: 43-year-old female with a history of anemia presents with a fatigue for weeks. Patient states she has felt weak, excessively tired over the past weeks. Denies heavy vaginal bleeding, rectal bleeding, abdominal pain, nausea, vomiting or diarrhea. Denies recent cough or cold symptoms no fevers. The patient has a pending appointment with her primary care provider next week. Related Data Home Medications ?Medication ?Instructions ?Recorded ?Confirmed levocetirizine 5 mg tablet (24HR 5 mg PO DAILY 09/30/23 09/30/23 Allergy Relief) Previous Rx's ?Medication ?Instructions ?Recorded vitamin A 3,000 mcg (10,000 unit) 1 cap PO DAILY #90 caps 12/18/22 capsule cholecalciferol (vitamin D3) 50 50 mcg PO DAILY #90 caps 09/30/23 mcg (2,000 unit) capsule iron,carbonyl 65 mg-vitamin C 125 1 tab PO BEDTIME #90 tabs 10/14/23 mg tablet,delayed release (Vitron-C) Allergies Allergy/AdvReac Type Severity Reaction Status Date / Time animal dander Allergy Severe Anaphylaxis Verified 12/24/23 18:19 Review of Systems 2 Review of Systems: Yes all other systems are reviewed and are negative Constitutional: Constitutional: Reports fatigue, Denies fever(s) and Reports lethargy Cardiovascular: Cardiovascular: Denies chest pain and Denies dyspnea Respiratory: Respiratory: Denies cough and Denies dyspnea Gastrointestinal: Gastrointestinal: Denies abdominal pain, Denies diarrhea, Denies nausea and Denies vomiting Endocrine: Endocrine: Reports fatigue PMFSH Past Medical History Attestation statement: The following information was validated with the patient. Medical History Overweight Liver fibrosis Hx of allergic rhinitis Seasonal allergies Sciatica of left side Low back pain Hiatal hernia Anxiety and depression Hx of chest pain PONV (postoperative nausea and vomiting) Vitamin D deficiency GERD (gastroesophageal reflux disease) Fibromyalgia Asthma Depression Morbid obesity Surgical History Hx of mastectomy Hx of laparoscopic gastric banding History of esophagogastroduodenoscopy (EGD) History of sleeve gastrectomy H/O bilateral breast biopsy Hx of tubal ligation Hx of carpal tunnel repair Family History Family History Mother Cancer Hypertension Arthritis Father Hypertension Diabetes Skin cancer Diverticulitis Brother Hypertension Daughter ADHD Son No problems noted. 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 (17+18 year old children) Do you presently have visiting nurse or other home services: No Alcohol intake: never Comment: fell on ice 04/18/2020 fell on ice no injury Patient Tobacco Use Status: Never used Tobacco Smoked in Last 30 Days: No Second Hand Smoke Exposure: No Advance Directives: No Advance Directives Information Provided: No Patient : No service: No Current occupational status: disabled Physical Exam ED Vital Signs: Vital Signs - 24 hr 12/24/23 18:18 12/24/23 23:00 Temperature 97.5 F 98.4 F Pulse Rate 70 71 Respiratory Rate 20 18 Blood Pressure 141/68 H 133/61 Pulse Oximetry 100 99 Oxygen Delivery Method Room Air Room Air BMI result Body Mass Index 27.2 Const Other: Alert, overall well in appearance Orientation/consciousness: patient oriented x3 Resp Effort & Inspection: normal respiratory effort Cardio Other: Normal peripheral perfusion Skin Other: Warm dry no rash Neuro General: patient oriented x3, no focal motor deficits and CN's II-XI intact bilaterally Psych Other: Calm cooperative Course Course Course Narrative: This is a rapid medical exam performed by Wes Mi NP: Additional HPI, ROS, PE not included below will be deferred to primary provider. Patient is a 43-year-old female with history of breast CA s/p double mastectomy presenting with weakness, fatigue, dizziness x 2 weeks. Reports history of anemia but states she has not required a blood transfusion. Denies hematochezia or melena. Plan: labs, viral serology, UA Medical Decision Making Medical Decision Making MDM Narrative: 43-year-old female with a history of anemia presents with a fatigue for weeks. Patient states she has felt weak, excessively tired over the past weeks. Denies heavy vaginal bleeding, rectal bleeding, abdominal pain, nausea, vomiting or diarrhea. Denies recent cough or cold symptoms no fevers. The patient has a pending appointment with her primary care provider next week. Problem: Anemia History: Per patient I have considered the following differential diagnoses: Anemia, dehydration, infection, hypothyroid, failure to thrive , viral syndrome Plan: Screening labs were obtained from triage, they are unremarkable. The patient requires a broad outpatient workup, where she can be screened for other pathology that could be potentially causing her fatigue, i.e. thyroid dysfunction, cancer, autoimmune disease etc. I have independently reviewed the following tests: Labs: No leukocytosis, not anemic, no electrolyte abnormality, not , viral panel negative Lab Data 12/24/23 18:39 12/24/23 18:39 Labs: Lab Results 12/24/23 12/24/23 Range/Units 18:36 18:39 WBC 6.3 (4.8-10.8) X10*3/uL RBC 4.28 (4.20-5.50) X10*6/uL Hgb 12.1 (12.0-16.0) g/dl Hct 35.5 L (37.0-47.0) % MCV 82.9 (80.0-98.0) fL MCH 28.3 (27.0-33.0) pg MCHC 34.1 (31.0-35.0) g/dl RDW 12.9 (11.0-16.0) % Plt Count 300 (160-400) X10*3/uL MPV 9.3 L (9.4-12.3) fL Immature Gran % (Auto) 0.2 (0.0-0.4) % Neut % (Auto) 45.6 (45-73) % Lymph % (Auto) 43.2 H (20-40) % [place] % (Auto) 7.0 (2-11) % Eos % (Auto) 3.2 (0-4) % Baso % (Auto) 0.8 (0-2) % Lymph # (Auto) 2.7 (1.2-4.9) X10*3/uL [place] # (Auto) 0.4 (0.1-1.2) X10*3/uL Eos # (Auto) 0.2 (0.0-0.4) X10*3/uL Baso # (Auto) 0.1 (0.0-0.2) X10*3/uL Abs Immat Gran (auto) 0.01 (0.00-0.03) X10*3/uL Absolute Neuts (auto) 2.9 (2.0-8.3) x10*3/uL Absolute Nucleated RBC 0.000 (0.0-0.012) X10*3/uL Nucleated RBC % (auto) 0.0 (0.0-0.2) /100WBC PT 10.2 L (10.9-12.4) SEC INR 0.9 (0.9-1.1) Sodium 144 (135-145) mmol/L Potassium 4.1 (3.3-5.1) mmol/L Chloride 108 (96-108) mmol/L Carbon Dioxide 29 (22-29) mmol/L Anion Gap 11 L (12-20) BUN 11 (9-16) mg/dL Creatinine 0.70 (0.5-1.4) mg/dL Estim Creat Clear Calc 90.5 Estimated GFR > 60 Random Glucose 93 (60-115) mg/dL Calcium 9.3 (8.4-10.2) mg/dL Magnesium 2.1 (1.6-2.6) mg/dL Total Bilirubin 0.2 (0.0-1.0) mg/dL AST 14 (5-31) U/L ALT 9 (0-31) U/L Alkaline Phosphatase 65 (39-117) U/L Total Protein 7.4 (6.5-8.0) g/dL Albumin 4.2 (3.5-5.0) g/dL Beta HCG, Quant < 2 mIU/mL Influenza Type A (PCR) NEGATIVE (Negative) Influenza Type B (PCR) NEGATIVE (Negative) RSV RNA Qual (PCR) NEGATIVE (Negative) SARS-CoV-2 RNA (RT-PCR) NEGATIVE (Negative) Discharge Plan Discharge Clinical Impression: Fatigue Patient Disposition: Home, Self-Care Instructions: Fatigue (ED) Additional Instructions: All of your labs were completely normal. You need further outpatient assessment to determine the reason for your weakness and fatigue. Keep your pending appointment with your primary care provider. Prescriptions: No Action vitamin A 3,000 mcg (10,000 unit) capsule 1 cap PO DAILY Qty: 90 3RF Vitron-C 65 mg iron- 125 mg tablet,delayed release (DR/EC) 1 tab PO BEDTIME Qty: 90 3RF levocetirizine [24HR Allergy Relief] 5 mg tablet 5 mg PO DAILY cholecalciferol (vitamin D3) 50 mcg (2,000 unit) capsule 50 mcg PO DAILY Qty: 90 3RF Print Language: Citizen Of [place]
[2023-12-24 18:45] LABS: MANUAL DIFF FLAG NO
[2023-12-24 18:46] LABS: Basophils Absolute Auto 0.1 X10*3/uL (0.0-0.2); Basophils Percent Auto 0.8 % (0-2); Eosinophils Absolute Auto 0.2 X10*3/uL (0.0-0.4); Eosinophils Percent Auto 3.2 % (0-4); Hematocrit 35.5 % (37.0-47.0); Hemoglobin 12.1 g/dl (12.0-16.0); Imm Gran Abs Auto 0.01 X10*3/uL (0.00-0.03); Imm Gran Pct Auto 0.2 % (0.0-0.4); Lymphocytes Absolute Auto 2.7 X10*3/uL (1.2-4.9); Lymphocytes Percent Auto 43.2 % (20-40); Mean Corpuscular HGB Conc 34.1 g/dl (31.0-35.0); Mean Corpuscular Hemoglobin 28.3 pg (27.0-33.0); Mean Corpuscular Volume 82.9 fL (80.0-98.0); Mean Platelet Volume 9.3 fL (9.4-12.3); Monocytes Absolute Auto 0.4 X10*3/uL (0.1-1.2); Neutrophils Absolute Auto 2.9 x10*3/uL (2.0-8.3); Neutrophils Percent Auto 45.6 % (45-73); Platelet Count 300 X10*3/uL (160-400); Red Blood Count 4.28 X10*6/uL (4.20-5.50); Red Cell Distribution Width 12.9 % (11.0-16.0); White Blood Count 6.3 X10*3/uL (4.8-10.8)
[2023-12-24 18:50] LABS: INTERNATIONAL NORM RATIO 0.9 (0.9-1.1); Prothrombin Time 10.2 SEC (10.9-12.4)
[2023-12-24 19:06] LABS: Alanine Aminotransferase 9 U/L (0-31); Albumin Level 4.2 g/dL (3.5-5.0); Alkaline Phosphatase 65 U/L (39-117); Anion Gap 11 (12-20); Aspartate Amino Transferase 14 U/L (5-31); Bilirubin Total 0.2 mg/dL (0.0-1.0); Blood Urea Nitrogen 11 mg/dL (9-16); Calcium 9.3 mg/dL (8.4-10.2); Carbon Dioxide 29 mmol/L (22-29); Chloride 108 mmol/L (96-108); Creatinine Clr Calc Pharmacy 90.5; Estimated Glomerular Filt Rate > 60; Glucose Random 93 mg/dL (60-115); Magnesium 2.1 mg/dL (1.6-2.6); Potassium 4.1 mmol/L (3.3-5.1); Sodium 144 mmol/L (135-145); Total Protein 7.4 g/dL (6.5-8.0)
[2023-12-24 19:07] LABS: HCG Quantitative < 2 mIU/mL
[2023-12-24 19:23] LABS: Influenza A PCR NEGATIVE (Negative); Influenza B PCR NEGATIVE (Negative); Resp Syncy Virus RNA Qual PCR NEGATIVE (Negative); SARS COV2 PCR INHOUSE NEGATIVE (Negative)
[2023-12-24 23:00] VITALS: BP 133/61; PULSE 71; RESP 18; TEMP 36.9; O2SAT 99
[2023-12-24 23:53] VITALS: BP 133/61; PULSE 71; RESP 18; TEMP 36.9; O2SAT 99
== END 2023-12-24 23:53 | disposition home or self-care (01) ==
PROVIDERS: Registered Nurse Emergency; Emergency Provider Emergency Medicine; PCP Internal Medicine
DX: R53.83 Other fatigue (principal); D64.9 Anemia, unspecified; R10.2 Pelvic and perineal pain; Z03.818 Encounter for observation for suspected exposure to other biological agents ruled out; Z79.899 Other long term (current) drug therapy
CPT/HCPCS: 0241U; 80053; 83735; 84702; 85025; 85610; 99283; 99284

== ENCOUNTER 2024-01-04 12:36 | Outpatient (AMB) | payer OTHER, SELFPAY ==
--- NOTE | 2024-01-04 12:42 | MHC.OFFVISWM ---
VS Expanded 01/04/24 12:55 BP 143/75 H Blood Pressure Location Rt brachial Blood Pressure Position Sitting Pulse 72 Pulse Source Pulse Oximeter Temp 98.0 F Temperature Source Temporal Artery Scan Pulse Oximetry 99 Oxygen Delivery Method Room Air Height 5 ft 0.5 in Weight 142 lb BMI 27.3 Body Fat % 30.0 Body Fat Mass 42.6 Fat Free Mass 99.4 Visceral Fat Rating 5.0 Body Water % 50.0 Body Water Mass 71.0 Muscle Mass/Score 94.4 Basal Metabolic Rate/Score 1,349 Intake Visit Reasons: OV PO LSG 05/17/20 Supervisor Cd Area Required: Yes Supervisor Cd Area Name: [place] [id number] Information Interpreted: clinical only Allergies animal dander Allergy (Severe, Verified 01/04/24 12:47) Anaphylaxis Medication List - Last Reconciled 01/04/24 by ANIKET Britt cholecalciferol (vitamin D3) 50 mcg PO DAILY iron,carbonyl-vitamin C 65 mg iron- 125 mg (Vitron-C) 1 tab PO BEDTIME levocetirizine (24HR Allergy Relief) 5 mg PO DAILY vitamin A 1 cap PO DAILY HPI Comments Details: This?is a?43?yo female who is s/p LSG 05/17/2020. Presents for 3.5 year post op visit. Weight at last visit on 09/30/2023 was 142 pounds with a BMI of 27.3, weight today is 144.2 pounds, representing a 2.2 pound weight gain with a BMI today of 27.7.? Occasional episodes of abdominal pain and nausea with solid foods. Thinks her portion sizes have been too big for her. Pt was recently in ER for fatigue/weakness, was not found to be anemic there, was instructed to f/u with PCP. Has had some labs ordered, not drawn yet. Pt reports 1 month without taking iron, ran out and waiting for authorization. She also continues to experience same rash that she mentioned at last visit. She had mentioned to PCP and tried a topical cream which did not work. Has another appointment with PCP Nov 1. She has started working with a canine service instructor trainer who is also a nurse. Was told to take 100g protein/day. Has a goal of participating in a bikini/bodybuilding contest. Will still take a protein shake if hungry but trying to use more regular foods to hit protein goal. Present meal plan includes: at least 60g protein per day combination of Soylent shakes (at breakfast) and small meals high in protein- will usually have meals, but if on the go will take a shake with her pt reports she had a stressful few weeks, wasn't eating much but has done better the past week Exercise routine includes: gym- cardio PFS Medical History (Updated 12/25/23 @ 00:01 by Leyla Edgar) Overweight Liver fibrosis Hx of allergic rhinitis Seasonal allergies Sciatica of left side Low back pain Hiatal hernia Anxiety and depression Hx of chest pain PONV (postoperative nausea and vomiting) Vitamin D deficiency GERD (gastroesophageal reflux disease) Fibromyalgia Asthma Depression Morbid obesity Surgical History (Updated 01/04/24 @ 12:52 by Dotty López CMA) Hx of breast reconstruction Hx of mastectomy Hx of laparoscopic gastric banding History of esophagogastroduodenoscopy (EGD) History of sleeve gastrectomy H/O bilateral breast biopsy Hx of tubal ligation Hx of carpal tunnel repair Family History Mother Cancer Hypertension Arthritis Father Hypertension Diabetes Skin cancer Diverticulitis Brother Hypertension Daughter ADHD Son No problems noted. 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 Pt will closely monitor weight/body composition. If she gains body fat mass will need to consider decreasing protein goal. Discussed appropriate portion sizes and avoiding certain textures of food that may cause pain. Will follow up with PCP for rash and complaints of fatigue. RTC in May for annual. Encouraged pt to text me between appts with any questions, related to advice from regional trainer or additional difficulty with pain. I spent a total of 30 minutes reviewing/updating records, examining the patient and counseling the patient on weight management as detailed above.
[2024-01-04 12:55] VITALS: BP 143/75; PULSE 72; TEMP 36.7; O2SAT 99; BMI 27.3
== END 2024-01-04 13:32 | disposition home or self-care (01) ==
PROVIDERS: PCP Internal Medicine; Visit Provider Physician Assistant Surgical
DX: E66.3 Overweight (principal); Z98.84 Bariatric surgery status
CPT/HCPCS: 99214; G2211

== ENCOUNTER → 2024-01-04 12:36 | Outpatient (BNVA) | payer OTHER, SELFPAY | PROVIDERS: PCP Internal Medicine; Visit Provider Physician Assistant Surgical | DX: E66.3 Overweight (principal); Z98.84 Bariatric surgery status; Z68.27 Body mass index [BMI] 27.0-27.9, adult | CPT/HCPCS: 99212 ==

== ENCOUNTER 2024-01-05 06:39 | Outpatient (REF) | payer OTHER, SELFPAY ==
[2024-01-05 07:48] LABS: Iron 90 mcg/dL (30-160); Percent Iron Saturation 29 % (15-50); Total Iron Binding Capacity 307 mcg/dL (228-428); Unsaturated Iron Binding 217 ug/dL
[2024-01-05 08:04] LABS: Ferritin 16 ng/mL (10-250); TSH reflex Free T4 1.35 uIU/mL (0.32-4.0); Vitamin D 25-OH Total 24.7 ng/mL (>30)
[2024-01-05 08:20] LABS: Folate 9.6 ng/mL (> or = 4.0); Vitamin B12 530 pg/mL (200-900)
[2024-01-13 19:24] LABS: Vitamin A 42 mcg/dL (38-98)
== END 2024-01-05 06:40 | disposition home or self-care (01) ==
LOC: HO.LAB 06:39
PROVIDERS: PCP Internal Medicine; Visit Provider Family Medicine
DX: R53.83 Other fatigue (principal)
CPT/HCPCS: 36415; 82306; 82607; 82728; 82746; 83540; 84443; 84590

== ENCOUNTER → 2024-08-02 08:35 | Outpatient (RCR) | payer OTHER, SELFPAY | END | disposition home or self-care (01) | LOC: HO.PTCHIC 03-06 12:44 | PROVIDERS: PCP Internal Medicine; Visit Provider Internal Medicine | DX: M25.511 Pain in right shoulder (principal); G89.29 Other chronic pain; M62.40 Contracture of muscle, unspecified site | CPT/HCPCS: 97014; 97110; 97140; 97161 ==